=== PATIENT | male | born 1940 | race Caucasian/White ===

== ENCOUNTER 2016-12-21 09:38 | Outpatient (CLI) | payer MEDICARE | END 2016-12-21 09:39 | disposition home or self-care (01) | DX: Z00.00 Encounter for general adult medical examination without abnormal findings (principal); R06.00 Dyspnea, unspecified; D64.9 Anemia, unspecified; Z12.5 Encounter for screening for malignant neoplasm of prostate | CPT/HCPCS: 36415; 80053; 84443; 85025; G0103 ==

== ENCOUNTER 2016-12-27 09:16 | Outpatient (CLI) | payer MEDICARE | END 2016-12-27 09:17 | disposition home or self-care (01) | DX: R06.00 Dyspnea, unspecified (principal); I08.3 Combined rheumatic disorders of mitral, aortic and tricuspid valves ==

== ENCOUNTER 2017-05-14 07:08 | Outpatient (CLI) | payer MEDICARE | END 2017-05-14 07:09 | disposition home or self-care (01) | LOC: LAB.F 07:08 | PROVIDERS: ATTEND Internal Medicine Interventional Cardiology | DX: I26.99 Other pulmonary embolism without acute cor pulmonale (principal) | CPT/HCPCS: 85610 ==

== ENCOUNTER 2017-05-21 07:21 | Outpatient (CLI) | payer MEDICARE | END 2017-05-21 07:22 | disposition home or self-care (01) | LOC: LAB.F 07:21 | PROVIDERS: ATTEND Pharmacist | DX: I26.99 Other pulmonary embolism without acute cor pulmonale (principal) | CPT/HCPCS: 85610 ==

== ENCOUNTER 2017-05-24 08:00 | Outpatient (CLI) | payer MEDICARE | END 2017-05-24 08:01 | disposition home or self-care (01) | LOC: LAB.F 08:00 | PROVIDERS: ATTEND Pharmacist | DX: I26.99 Other pulmonary embolism without acute cor pulmonale (principal) | CPT/HCPCS: 85610 ==

== ENCOUNTER 2017-05-31 07:00 | Outpatient (CLI) | payer MEDICARE | END 2017-05-31 07:01 | disposition home or self-care (01) | LOC: LAB.F 07:00 | PROVIDERS: ATTEND Pharmacist | DX: I26.99 Other pulmonary embolism without acute cor pulmonale (principal) | CPT/HCPCS: 85610 ==

== ENCOUNTER 2017-06-07 07:06 | Outpatient (CLI) | payer MEDICARE | END 2017-06-07 07:07 | disposition home or self-care (01) | LOC: LAB.F 07:06 | PROVIDERS: ATTEND Pharmacist | DX: I26.99 Other pulmonary embolism without acute cor pulmonale (principal) | CPT/HCPCS: 85610 ==

== ENCOUNTER 2017-06-21 07:08 | Outpatient (CLI) | payer MEDICARE | END 2017-06-21 07:09 | disposition home or self-care (01) | LOC: LAB.F 07:08 | PROVIDERS: ATTEND Pharmacist | DX: I26.99 Other pulmonary embolism without acute cor pulmonale (principal) | CPT/HCPCS: 85610 ==

== ENCOUNTER 2017-06-28 08:51 | Outpatient (CLI) | payer MEDICARE ==
--- NOTE | 2017-06-28 13:24 | DEXA Report ---
DEXA SCAN: 06/28/2017 CLINICAL INDICATION: [facility] healthcare. TECHNIQUE: Dual energy x-ray absorptiometry (DXA) was performed on a Present[employer] system. Regions measured are the AP spine, femoral neck, and, if needed, forearm. COMPARISON: None. In accordance with the International Society for Clinical Densitometry (ISCD) guidelines, data from previous exams may be reanalyzed using current recommendations and techniques. This is done to allow a more accurate basis for comparison with the current study. FINDINGS The data for the lumbar spine is as follows: REGION BMD (g/cm/cm) T-SCORE Z-SCORE L1 0.839 -2.7 -1.9 L2 0.913 -2.7 -1.9 L3 1.044 -1.6 -0.8 L4 1.002 -2.0 -1.2 TOTAL 0.949 -2.3 -1.4 NOTE: All evaluable vertebrae are used for classification. The data for the hip is as follows: REGION BMD (g/cm/cm) T-SCORE Z-SCORE Neck 0.768 -2.3 -0.8 TOTAL 0.838 -1.8 -0.8 NOTE: The femoral neck or total proximal femur, whichever is lowest, is used for classification. IMPRESSION: THE WHO CLASSIFICATION BASED ON THE INTERNATIONAL REFERENCE STANDARD IS OSTEOPENIA. THE FRACTURE RISK IS INCREASED. RECOMMENDATION: Patients with diagnosis of osteoporosis or osteopenia should have regular bone mineral density assessment. For those eligible for Medicare, routine testing is allowed once every 2 years. Testing frequency can be increased for patients who have rapidly progressing disease or for those who are receiving medical therapy to restore bone mass. COMMENT: World Health Organization (WHO) definitions for osteoporosis and osteopenia: NORMAL BMD: T-score at -1.0 or higher, fracture risk is low. OSTEOPENIA BMD: T-score between -1.0 and -2.5, fracture risk is increased. OSTEOPOROSIS BMD: T-score at -2.5 or lower, fracture risk high. National Osteoporosis Foundation recommends: 1. Obtain adequate dietary calcium (at least 1200 mg per day) and vitamin D (400 -800 international units per day). 2. Participate, as appropriate, in regular weightbearing and muscle- strengthening exercise. 3. Avoid tobacco use and reduce alcohol and caffeine intake. 4. For more detailed information see the website at www.NOF.org. MTDD
== END 2017-06-28 08:52 | disposition home or self-care (01) ==
LOC: DI 08:51
PROVIDERS: ATTEND Family Medicine
DX: Z00.00 Encounter for general adult medical examination without abnormal findings (principal); M85.89 Other specified disorders of bone density and structure, multiple sites
CPT/HCPCS: 77080

== ENCOUNTER 2017-07-05 07:11 | Outpatient (CLI) | payer MEDICARE | END 2017-07-05 07:12 | disposition home or self-care (01) | LOC: LAB.F 07:11 | PROVIDERS: ATTEND Pharmacist | DX: I26.99 Other pulmonary embolism without acute cor pulmonale (principal) | CPT/HCPCS: 85610 ==

== ENCOUNTER 2017-08-23 07:26 | Outpatient (CLI) | payer MEDICARE | END 2017-08-23 07:27 | disposition home or self-care (01) | LOC: LAB.F 07:26 | PROVIDERS: ATTEND Pharmacist | DX: I26.99 Other pulmonary embolism without acute cor pulmonale (principal) | CPT/HCPCS: 85610 ==

== ENCOUNTER 2017-09-11 07:18 | Outpatient (CLI) | payer MEDICARE | END 2017-09-11 07:19 | disposition home or self-care (01) | LOC: LAB.F 07:18 | PROVIDERS: ATTEND Pharmacist | DX: I26.99 Other pulmonary embolism without acute cor pulmonale (principal) | CPT/HCPCS: 85610 ==

== ENCOUNTER 2017-09-25 07:58 | Outpatient (CLI) | payer MEDICARE | END 2017-09-25 07:59 | disposition home or self-care (01) | LOC: LAB.F 07:58 | PROVIDERS: ATTEND Pharmacist | DX: I26.99 Other pulmonary embolism without acute cor pulmonale (principal) | CPT/HCPCS: 85610 ==

== ENCOUNTER 2017-10-23 07:43 | Outpatient (CLI) | payer MEDICARE | END 2017-10-23 07:44 | disposition home or self-care (01) | LOC: LAB.F 07:43 | PROVIDERS: ATTEND Pharmacist | DX: I26.99 Other pulmonary embolism without acute cor pulmonale (principal) | CPT/HCPCS: 85610 ==

== ENCOUNTER 2017-11-19 07:42 | Outpatient (CLI) | payer MEDICARE | END 2017-11-19 07:43 | disposition home or self-care (01) | LOC: LAB 07:42 | PROVIDERS: ATTEND Pharmacist | DX: I26.99 Other pulmonary embolism without acute cor pulmonale (principal) | CPT/HCPCS: 85610 ==

== ENCOUNTER 2017-12-10 07:34 | Outpatient (CLI) | payer MEDICARE | END 2017-12-10 07:35 | disposition home or self-care (01) | LOC: LAB.F 07:34 | PROVIDERS: ATTEND Pharmacist | DX: I26.99 Other pulmonary embolism without acute cor pulmonale (principal) | CPT/HCPCS: 85610 ==

== ENCOUNTER 2018-01-02 07:44 | Outpatient (CLI) | payer MEDICARE | END 2018-01-02 07:45 | disposition home or self-care (01) | LOC: LAB.F 07:44 | PROVIDERS: ATTEND Pharmacist | DX: I26.99 Other pulmonary embolism without acute cor pulmonale (principal) | CPT/HCPCS: 85610 ==

== ENCOUNTER 2018-01-23 07:09 | Outpatient (CLI) | payer MEDICARE | END 2018-01-23 07:10 | disposition home or self-care (01) | LOC: LAB.F 07:09 | PROVIDERS: ATTEND Pharmacist | DX: I26.99 Other pulmonary embolism without acute cor pulmonale (principal) | CPT/HCPCS: 85610 ==

== ENCOUNTER 2018-02-08 10:15 | Emergency (ER) | payer MEDICARE ==
--- NOTE | 2018-02-08 10:38 | ED Physician Documentation ---
History of Present Illness - Stated complaint Stated Complaint: RIB PX SURGERY SITE - Chief complaint Chief Complaint: General - History obtained from History obtained from: Patient - History of Present Illness Timing: Today Pain level max: 3 Pain level now: 3 - Additonal information Additional information: Patient is a 77-year-old male who states that he noticed what feels like old temporary pacemaker wires protruding into the subcutaneous tissue of his right chest wall today and that they are painful. States he had pacemaker placed last year it [facility] in [place], Dr. Watts. No redness, no swelling. No drainage. No fevers. Better with rest, worse with movement and palpation Review of Systems Constitutional: denies: Fever, Chills Skin: denies: Rash Musculoskeletal: denies: Neck pain, Back pain Neurologic: denies: Headache PD PAST MEDICAL HISTORY - Past Medical History Cardiovascular: None, Arrhythmia Respiratory: None Endocrine/Autoimmune: Other GI: None : None HEENT: None Psych: None Musculoskeletal: None Derm: None - Past Surgical History General: Colonoscopy Ortho: Arthroscopic surgery - Present Medications Home Medications: Ambulatory Orders Medication Instructions Recorded Confirmed Aspirin 81 mg PO DAILY 02/08/18 Metoprolol Tartrate 25 mg PO BID 02/08/18 Warfarin Sodium 6 mg PO DAILY 02/08/18 - Allergies Allergies/Adverse Reactions: Allergies Allergy/AdvReac Type Severity Reaction Status Date / Time bee venom protein (honey bee) Allergy Edema Verified 02/08/18 11:04 perfume AdvReac Headache Verified 02/08/18 11:04 PD ED PE NORMAL - Vitals Vital signs reviewed: Yes - General General: Alert and oriented X 3, No acute distress - HEENT HEENT: Moist mucous membranes - Neck Neck: Supple, no meningeal sign - Cardiac Cardiac: RRR - Respiratory Respiratory: No respiratory distress, Clear bilaterally - Abdomen Abdomen: Soft, Non tender, Non distended - Derm Derm: Warm and dry, Other (Small area, 0.5 x 0.5 cm firmness to the subcutaneous tissue, no signs of infection.) - Neuro Neuro: Alert and oriented X 3 - Psych Psych: Normal mood, Normal affect Results - Vitals Vitals: Vital Signs - 24 hr 02/08/18 02/08/18 10:22 11:20 Temperature 36.5 C Heart Rate 74 76 Respiratory 18 15 Rate Blood Pressure 125/81 H 155/70 H O2 Saturation 100 98 Oxygen O2 Source Room air - Rads (name of study) cxr Radiology: Prelim report reviewed, EMP read contemporaneously, See rad report ( No focal consolidation. Therefore percutaneous temporary pacing wires extending from the anterior chest posteriorly to the left and right side of the heart. 2 of these wires protrude anteriorly at the anterior chest and are best appreciated on the lateral view) PD MEDICAL DECISION MAKING - ED course Complexity details: reviewed results, re-evaluated patient, considered differential, d/w patient, d/w customer support consultant ED course: Patient appears to have 2 temporary pacing wires that are protruding anteriorly into the anterior chest. No evidence of infection. Discussed the case with Dr. Saunders, cardiothoracic surgery on-call in [place] who recommends follow- up in the office on Saturday for evaluation. X-rays were placed on a CD and given to the patient. Patient counseled regarding signs and symptoms for which I believe and urgent re-evaluation would be necessary. Patient with good understanding of and agreement to plan and is comfortable going home at this time This document was made in part using voice recognition software. While efforts are made to proofread this document, sound alike and grammatical errors may occur. Departure - Departure Disposition: Home, Self Care Clinical Impression: Foreign body in subcutaneous tissue Condition: Good Instructions: ED Foreign Body Soft Tissue Follow-Up: Moerno Watts JR, MD [Physician No Access] - 02/10/18 Comments: I spoke with Dr. Saunders today and she or Dr. Watts will see you in clinic on saturday about the wires. Take the xrays with you. Discharge Date/Time: 02/08/18 11:20
--- NOTE | 2018-02-08 11:10 | XRAY Preliminary Report ---
Exam: XR CHEST 2 VIEW X-RAY IMPRESSION: 1. No focal consolidation. 2. There are 4 percutaneous temporary pacing wires extending from the anterior chest posteriorly to t he left and right side of the heart. Two of these wires protrude anteriorly at the anterior chest and are best appreciated on the lateral view. [facility] SITE ID: [id number]
--- NOTE | 2018-02-08 11:10 | XRAY Report ---
EXAM: CHEST RADIOGRAPHY EXAM DATE: 02/08/2018 10:41 AM. CLINICAL HISTORY: R lower anterior chest wall pain, swelling, ST FB?. COMPARISON: None. TECHNIQUE: 2 views. FINDINGS: Lungs/Pleura: No focal opacities evident. No pleural effusion. No pneumothorax. Normal volumes. Mediastinum: Heart and mediastinal contours are unremarkable. Other: Left-sided cardiac pacemaker device with [address] There are 4 percutaneous th in wires extending posteriorly from the anterior chest to the left and right side of the heart. Moderate anterior wedging of the T11 T6 vertebral bodies and mild anterior wedging of the T8 vertebra l body. IMPRESSION: 1. No focal consolidation. 2. There are 4 percutaneous temporary pacing wires extending from the anterior chest posteriorly to t he left and right side of the heart. Two of these wires protrude anteriorly at the anterior chest and are best appreciated on the lateral view. [facility] Referring Provider Line: [phone] SITE ID: [id number]
[2018-02-08 11:21] VITALS: BP 155/70
== END 2018-02-08 11:20 | disposition home or self-care (01) ==
LOC: ED 10:15
DX: S20.359A Superficial foreign body of unspecified front wall of thorax, initial encounter (principal); X58.XXXA Exposure to other specified factors, initial encounter; Z95.0 Presence of cardiac pacemaker; Z79.01 Long term (current) use of anticoagulants; Z79.82 Long term (current) use of aspirin
CPT/HCPCS: 71046; 99283

== ENCOUNTER 2018-02-20 07:33 | Outpatient (CLI) | payer MEDICARE | END 2018-02-20 07:34 | disposition home or self-care (01) | LOC: LAB.F 07:33 | PROVIDERS: ATTEND Pharmacist | DX: I26.99 Other pulmonary embolism without acute cor pulmonale (principal) | CPT/HCPCS: 85610 ==

== ENCOUNTER 2018-03-06 07:19 | Outpatient (CLI) | payer MEDICARE | END 2018-03-06 07:20 | disposition home or self-care (01) | LOC: LAB.F 07:19 | PROVIDERS: ATTEND Pharmacist | DX: I26.99 Other pulmonary embolism without acute cor pulmonale (principal) | CPT/HCPCS: 85610 ==

== ENCOUNTER 2018-03-20 13:40 | Outpatient (CLI) | payer MEDICARE | END 2018-03-20 13:41 | disposition home or self-care (01) | LOC: LAB.F 13:40 | PROVIDERS: ATTEND Pharmacist | DX: I26.99 Other pulmonary embolism without acute cor pulmonale (principal) | CPT/HCPCS: 85610 ==

== ENCOUNTER 2018-04-11 07:18 | Outpatient (CLI) | payer MEDICARE | END 2018-04-11 07:19 | disposition home or self-care (01) | LOC: LAB.F 07:18 | PROVIDERS: ATTEND Pharmacist | DX: I26.99 Other pulmonary embolism without acute cor pulmonale (principal) | CPT/HCPCS: 85610 ==

== ENCOUNTER 2018-05-09 07:21 | Outpatient (CLI) | payer MEDICARE | END 2018-05-09 07:22 | disposition home or self-care (01) | LOC: LAB.F 07:21 | PROVIDERS: ATTEND Family Medicine | DX: I26.99 Other pulmonary embolism without acute cor pulmonale (principal) | CPT/HCPCS: 85610 ==

== ENCOUNTER 2018-05-29 07:26 | Outpatient (CLI) | payer MEDICARE | END 2018-05-29 07:27 | disposition home or self-care (01) | LOC: LAB.F 07:26 | PROVIDERS: ATTEND Pharmacist | DX: I26.99 Other pulmonary embolism without acute cor pulmonale (principal) | CPT/HCPCS: 85610 ==

== ENCOUNTER 2018-07-29 14:17 | Outpatient (CLI) | payer MEDICARE | END 2018-07-29 14:18 | disposition home or self-care (01) | LOC: LAB.F 14:17 | PROVIDERS: ATTEND Pharmacist | DX: I26.99 Other pulmonary embolism without acute cor pulmonale (principal) | CPT/HCPCS: 85610 ==

== ENCOUNTER 2018-08-05 15:18 | Outpatient (CLI) | payer MEDICARE ==
--- NOTE | 2018-08-05 22:04 | XRAY Report ---
Reason: RIB PAIN,RT SIDED Procedure Date: 08/05/2018 Accession Number: [id number] / [id number] Procedure: XR - Chest 2 View X-Ray CPT Code: 60787 FULL RESULT: EXAM: CHEST RADIOGRAPHY EXAM DATE: 08/05/2018 03:32 PM. CLINICAL HISTORY: RIB PAIN,RT SIDED. COMPARISON: CHEST 2 VIEW 02/08/2018 10:31 AM. TECHNIQUE: 2 views. FINDINGS: Lungs/Pleura: No focal opacities evident. No pleural effusion. No pneumothorax. Normal volumes. Mediastinum: Heart and mediastinal contours are unremarkable. Aortic valve prosthesis, as before. Pacemaker electrodes at the right atrial appendage and right ventricular apex, as before. Other: Rib detail radiographs were not obtained, but right-sided ribs are grossly unremarkable. Moderate compression deformities are noted at 3 mid to lower thoracic vertebrae, as before. IMPRESSION: 1. Rib detail radiographs are not obtained, but right-sided ribs are grossly unremarkable. 2. 3 moderate mid to lower thoracic vertebral compression deformities, as before. 3. Lungs are clear. 4. Heart size normal. Prosthetic aortic valve and dual chamber pacemaker electrodes, as before. [facility]
== END 2018-08-05 15:19 | disposition home or self-care (01) ==
LOC: DI 15:18
PROVIDERS: ATTEND Nurse Practitioner
DX: M43.8X4 Other specified deforming dorsopathies, thoracic region (principal); Z95.0 Presence of cardiac pacemaker; Z95.2 Presence of prosthetic heart valve
CPT/HCPCS: 71046

== ENCOUNTER 2018-08-28 07:09 | Outpatient (CLI) | payer MEDICARE | END 2018-08-28 07:10 | disposition home or self-care (01) | LOC: LAB.F 07:09 | PROVIDERS: ATTEND Pharmacist | DX: I26.99 Other pulmonary embolism without acute cor pulmonale (principal) | CPT/HCPCS: 85610 ==

== ENCOUNTER 2018-09-11 07:30 | Outpatient (CLI) | payer MEDICARE | END 2018-09-11 07:31 | disposition home or self-care (01) | LOC: LAB.F 07:30 | PROVIDERS: ATTEND Pharmacist | DX: I26.99 Other pulmonary embolism without acute cor pulmonale (principal) | CPT/HCPCS: 85610 ==

== ENCOUNTER 2018-09-25 08:02 | Outpatient (CLI) | payer MEDICARE | END 2018-09-25 08:03 | disposition home or self-care (01) | LOC: LAB.F 08:02 | PROVIDERS: ATTEND Pharmacist | DX: I26.99 Other pulmonary embolism without acute cor pulmonale (principal) | CPT/HCPCS: 85610 ==

== ENCOUNTER 2018-10-09 07:17 | Outpatient (CLI) | payer MEDICARE | END 2018-10-09 07:18 | disposition home or self-care (01) | LOC: LAB.F 07:17 | PROVIDERS: ATTEND Pharmacist | DX: I26.99 Other pulmonary embolism without acute cor pulmonale (principal) | CPT/HCPCS: 85610 ==

== ENCOUNTER 2018-10-29 09:31 | Outpatient (CLI) | payer MEDICARE | END 2018-10-29 09:32 | disposition home or self-care (01) | LOC: LAB.F 09:31 | PROVIDERS: ATTEND Pharmacist | DX: I26.99 Other pulmonary embolism without acute cor pulmonale (principal) | CPT/HCPCS: 85610 ==

== ENCOUNTER 2018-11-20 07:10 | Outpatient (CLI) | payer MEDICARE | END 2018-11-20 07:11 | disposition home or self-care (01) | LOC: LAB.F 07:10 | PROVIDERS: ATTEND Pharmacist | DX: I26.99 Other pulmonary embolism without acute cor pulmonale (principal) | CPT/HCPCS: 85610 ==

== ENCOUNTER 2018-12-04 07:20 | Outpatient (CLI) | payer MEDICARE | END 2018-12-04 07:21 | disposition home or self-care (01) | LOC: LAB.F 07:20 | PROVIDERS: ATTEND Pharmacist | DX: I26.99 Other pulmonary embolism without acute cor pulmonale (principal) | CPT/HCPCS: 85610 ==

== ENCOUNTER 2018-12-25 07:14 | Outpatient (CLI) | payer MEDICARE | END 2018-12-25 07:15 | disposition home or self-care (01) | LOC: LAB.F 07:14 | PROVIDERS: ATTEND Pharmacist | DX: I26.99 Other pulmonary embolism without acute cor pulmonale (principal) | CPT/HCPCS: 85610 ==

== ENCOUNTER 2019-01-08 07:14 | Outpatient (CLI) | payer MEDICARE | END 2019-01-08 07:15 | disposition home or self-care (01) | LOC: LAB.F 07:14 | PROVIDERS: ATTEND Pharmacist | DX: I26.99 Other pulmonary embolism without acute cor pulmonale (principal) | CPT/HCPCS: 85610 ==

== ENCOUNTER 2019-01-22 07:08 | Outpatient (CLI) | payer MEDICARE | END 2019-01-22 07:09 | disposition home or self-care (01) | LOC: LAB.F 07:08 | PROVIDERS: ATTEND Pharmacist | DX: I26.99 Other pulmonary embolism without acute cor pulmonale (principal) | CPT/HCPCS: 85610 ==

== ENCOUNTER 2019-03-05 07:16 | Outpatient (CLI) | payer MEDICARE | END 2019-03-05 07:17 | disposition home or self-care (01) | LOC: LAB.F 07:16 | PROVIDERS: ATTEND Pharmacist | DX: I26.99 Other pulmonary embolism without acute cor pulmonale (principal) | CPT/HCPCS: 85610 ==

== ENCOUNTER 2019-03-19 07:30 | Outpatient (CLI) | payer MEDICARE | END 2019-03-19 07:31 | disposition home or self-care (01) | LOC: LAB.F 07:30 | PROVIDERS: ATTEND Pharmacist | DX: I26.99 Other pulmonary embolism without acute cor pulmonale (principal) | CPT/HCPCS: 85610 ==

== ENCOUNTER 2019-04-02 13:08 | Emergency (ER) | payer MEDICARE ==
[2019-04-02] MEDS ORDERED: HYDROmorphone 1 MG/ML CARPUJECT IVP STA (16:12)
--- NOTE | 2019-04-02 16:22 | ED Physician Documentation ---
History of Present Illness - Stated complaint Stated Complaint: NECK PX/BUMP - Chief complaint Chief Complaint: General - History obtained from History obtained from: Patient, Family - History of Present Illness Timing: Other (today) Pain level max: 10 Pain level now: 10 Improved by: rest Worsened by: movement - Additonal information Additional information: 78-year-old male presents to the emergency department with neck pain. Started this morning and is worsened throughout the day. Now unable to turn his neck. He states that he felt a small lump at the base of his neck earlier today. No trauma. No fevers. No chest pain. No back pain. No focal neurological deficits. No numbness or tingling. Worse with movement and better with rest. Review of Systems Constitutional: denies: Fever, Chills Respiratory: denies: Cough GI: denies: Nausea, Vomiting, Diarrhea Skin: denies: Rash Musculoskeletal: denies: Back pain Neurologic: denies: Focal weakness, Numbness, Headache PD PAST MEDICAL HISTORY - Past Medical History Past Medical History: Yes Cardiovascular: Arrhythmia Respiratory: None Neuro: None Endocrine/Autoimmune: Other GI: None : None HEENT: None Psych: None Musculoskeletal: None Derm: None - Past Surgical History Past Surgical History: Yes General: Colonoscopy Ortho: Arthroscopic surgery Cardiovascular: Valve replacement, Pacemaker - Present Medications Home Medications: Ambulatory Orders Medication Instructions Recorded Confirmed Aspirin 81 mg PO DAILY 02/08/18 Metoprolol Tartrate 25 mg PO BID 02/08/18 Warfarin Sodium 6 mg PO DAILY 02/08/18 Hydrocodone/Acetaminophen 1 - 2 each PO Q6H PRN #14 tablet 04/02/19 [Hydrocodon-Acetaminophen 5-325] diazePAM [Valium] 5 - 10 mg PO TID PRN #15 tablet 04/02/19 - Allergies Allergies/Adverse Reactions: Allergies Allergy/AdvReac Type Severity Reaction Status Date / Time bee venom protein (honey bee) Allergy Edema Verified 04/02/19 13:13 perfume AdvReac Headache Verified 04/02/19 13:13 - Social History Does the pt smoke?: No Smoking Status: Never smoker Does the pt drink ETOH?: No Does the pt have substance abuse?: No - Immunizations Immunizations are current?: Yes - POLST Patient has POLST: No PD ED PE NORMAL - Vitals Vital signs reviewed: Yes - General General: Alert and oriented X 3, No acute distress - HEENT HEENT: Moist mucous membranes - Neck Neck: Supple, no meningeal sign, Other (Paraspinal spasm bilateral paracervical. No midline tenderness to palpation. No step-off or deformity) - Cardiac Cardiac: RRR - Respiratory Respiratory: No respiratory distress, Clear bilaterally - Abdomen Abdomen: Soft, Non tender, Non distended - Back Back: No spinal TTP - Derm Derm: Warm and dry - Neuro Neuro: Alert and oriented X 3 - Psych Psych: Normal mood, Normal affect Results - Vitals Vitals: Vital Signs - 24 hr 04/02/19 04/02/19 04/02/19 13:11 16:43 17:18 Temperature 36.4 C L Heart Rate 70 70 70 Respiratory 19 12 13 Rate Blood Pressure 130/78 150/92 H 127/87 H O2 Saturation 94 97 95 04/02/19 18:17 Temperature 36.3 C L Heart Rate 70 Respiratory 13 Rate Blood Pressure 130/88 H O2 Saturation 96 Oxygen O2 Source Room air - Labs Labs: Laboratory Tests 04/02/19 04/02/19 04/02/19 16:27 16:27 16:27 WBC 6.4 RBC 4.28 L Hgb 12.5 L Hct 39.5 L MCV 92.3 MCH 29.2 MCHC 31.6 L RDW 13.1 Plt Count 147 MPV 9.7 Neut # (Auto) 4.4 Lymph # (Auto) 1.3 L [place] # (Auto) 0.6 Eos # (Auto) 0.1 Baso # (Auto) 0.0 Absolute Nucleated RBC 0.00 Nucleated RBC % 0.0 PT 36.0 H INR 3.2 H Sodium 139 Potassium 4.4 Chloride 104 Carbon Dioxide 25 Anion Gap 10.0 BUN 22 H Creatinine 0.6 Estimated GFR (MDRD) 131 Glucose 96 Calcium 8.9 Total Bilirubin 1.3 H AST 46 H ALT 58 Alkaline Phosphatase 104 Total Protein 7.1 Albumin 3.7 Globulin 3.4 Albumin/Globulin Ratio 1.1 Lipase 31 - Rads (name of study) head angio CT Radiology: Prelim report reviewed, EMP read contemporaneously, See rad report (No evidence of acute intracranial abnormality on the noncontrast CT head. Specifically, no evidence of acute infarct, intracranial hemorrhage, mass effect, midline shift, or hydrocephalus. 2. 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 3. No abnormal enhancement on the postcontrast CT head. 4. No CTA evidence of hemodynamically significant stenosis, large vessel occlusion, acute dissection, aneurysm, or vascular malformation within extracranial or intracranial arteries. ) neck angio ct Radiology: Prelim report reviewed, EMP read contemporaneously, See rad report (No evidence of acute intracranial abnormality on the noncontrast CT head. Specifically, no evidence of acute infarct, intracranial hemorrhage, mass effect, midline shift, or hydrocephalus. 2. 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 3. No abnormal enhancement on the postcontrast CT head. 4. No CTA evidence of hemodynamically significant stenosis, large vessel occlusion, acute dissection, aneurysm, or vascular malformation within extracranial or intracranial arteries. ) PD MEDICAL DECISION MAKING - ED course Complexity details: reviewed results, re-evaluated patient, considered differential, d/w patient, d/w family ED course: 78-year-old male with neck muscle spasm. Initially concern for possible verteberal artery dissection or aneurysm. He also stated that he developed worsening headache and had difficulty speaking secondary to pain. Concern for possible aneurysm as well. He improved with Dilaudid, Toradol and Valium. Clinically appeared to be a muscle spasm. No acute findings on angiograms. We will have him follow-up closely with his doctor. Patient and family counseled regarding signs and symptoms for which I believe and urgent re-evaluation would be necessary. Patient with good understanding of and agreement to plan and is comfortable going home at this time This document was made in part using voice recognition software. While efforts are made to proofread this document, sound alike and grammatical errors may occur. Departure - Departure Disposition: 01 Home, Self Care Clinical Impression: Neck muscle spasm Condition: Good Instructions: ED Spasm Neck No Injury Follow-Up: your,doctor in 3 days [Other] Prescriptions: diazePAM [Valium] 5 - 10 mg PO TID PRN #15 tablet PRN Reason: Spasms Hydrocodone/Acetaminophen [Hydrocodon-Acetaminophen 5-325] 1 - 2 each PO Q6H PRN #14 tablet PRN Reason: pain Comments: Gently move your neck at home. Return if you worsen. A heating pad may help as well. Do not drive or operate heavy machinery while taking the Valium or Vicodin. Do not drink alcohol or drive while on narcotic pain medicine. Note that many narcotic pain relievers also contain tylenol/acetaminophen. Please ensure that your total dose of acetaminophen from all sources does not exceed 3 grams (3000mg) per day. You may constipated on this medication, take a stool softener such as "Colace" twice a day while you are on it. Also recommend a gucd-mpe-ablhhjj laxative such as senna or MiraLAX any day that you do not have a bowel movement. If you received narcotic pain medication in the emergency department, do not drive or operate machinery for the next 24 hours. Discharge Date/Time: 04/02/19 19:14
[2019-04-02 16:35] LABS: BASOPHILS % (AUTO) 0.3 %; EOSINOPHILS # (AUTO) 0.1 10^3/uL (0.0-0.7); EOSINOPHILS % (AUTO) 1.2 %; HGB - HEMOGLOBIN 12.5 g/dL (14.0-18.0); LYMPHOCYTES # (AUTO) 1.3 10^3/uL (1.5-3.5); LYMPHOCYTES % (AUTO) 20.4 %; MEAN CORPUSCULAR HEMOGLOBIN 29.2 pg (27.0-31.0); MEAN CORPUSCULAR HGB CONC 31.6 g/dL (32.0-36.0); MEAN CORPUSCULAR VOLUME 92.3 fL (80.0-94.0); MEAN PLATELET VOLUME 9.7 fL (7.4-11.4); MONOCYTES # (AUTO) 0.6 10^3/uL (0.0-1.0); MONOCYTES % (AUTO) 9.7 %; NEUTROPHILS # (AUTO) 4.4 10^3/uL (1.5-6.6); NEUTROPHILS % (AUTO) 68.2 %; PLT - PLATELET COUNT 147 10^3/uL (130-450); RED BLOOD COUNT 4.28 10^6/uL (4.70-6.10); RED CELL DISTRIBUTION WIDTH 13.1 % (12.0-15.0); WHITE BLOOD COUNT 6.4 x10^3/uL (4.8-10.8)
[2019-04-02 16:46] LABS: ALBUMIN 3.7 g/dL (3.2-5.5); ALBUMIN/GLOBULIN RATIO 1.1 (1.0-2.2); BILIRUBIN,TOTAL 1.3 mg/dL (0.2-1.0); CALCIUM 8.9 mg/dL (8.5-10.3); CREATININE 0.6 mg/dL (0.6-1.2); TOTAL PROTEIN 7.1 g/dL (6.7-8.2)
[2019-04-02] MEDS ORDERED: IOVERSOL 320 100 ML VIAL IVP ONE ×2 (16:50→17:21)
[2019-04-02 17:13] LABS: INR 3.2 (0.8-1.2)
--- NOTE | 2019-04-02 17:48 | CT Report ---
Reason: neck pain, headache Procedure Date: 04/02/2019 Accession Number: [id number] / [id number] Procedure: CT - ANGIO HEAD W/WO CPT Code: FULL RESULT: EXAM: CT ANGIOGRAM HEAD AND NECK. CT SCAN HEAD WITHOUT AND WITH CONTRAST. EXAM DATE: 04/02/2019 05:18 PM. CLINICAL HISTORY: 78-year-old male. Neck pain, headache. COMPARISON: NECK ANGIO 04/02/2019 5:01 PM. TECHNIQUE: Routine axial helical CTA imaging was performed from the aortic arch through the [place]. Routine axial CT imaging of the head was performed prior to and following contrast administration. Reconstructions: Routine multiplanar 3D MIP reconstructions. IV contrast: 80 cc Optiray 320. NASCET Criteria are used for stenosis measurements. In accordance with CT protocol optimization, one or more of the following dose reduction techniques were utilized for this exam: automated exposure control, adjustment of mA and/or KV based on patient size, or use of iterative reconstructive technique. FINDINGS: CT SCAN HEAD: Parenchyma: No intraparenchymal hemorrhage. No evidence of mass, midline shift, or CT findings of acute infarction. [place]-white differentiation is distinct. 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 No abnormal enhancement on the postcontrast CT head. Extra-axial Spaces: Normal for age. No subdural or epidural collections identified. Ventricles: Normal in size and position. Sinuses and Orbits: Imaged paranasal sinuses, orbits, and mastoids show no significant abnormality. Bones: No evidence of fracture or calvarial defect. CT ANGIOGRAM EXTRACRANIAL CIRCULATION: The visualized arch is unremarkable. Great vessels are patent and unremarkable. Right Carotid: The common carotid, internal carotid, and external carotid arteries are widely patent. No dissection, significant atherosclerotic plaque, or calcification identified. Left Carotid: The common carotid, internal carotid, and external carotid arteries are widely patent. No dissection, significant atherosclerotic plaque, or calcification identified. Vertebrals: The right vertebral artery is dominant. The vertebrobasilar system shows no stenosis, dissection, aneurysm, or significant atherosclerotic disease. CT ANGIOGRAM INTRACRANIAL CIRCULATION: RIGHT: Internal Carotid artery: No evidence of dissection. No evidence of aneurysm along the intracranial ICA. Anterior Cerebral Artery: Patent without significant stenosis, aneurysm, or vascular malformation. Middle Cerebral Artery: Patent without significant stenosis, aneurysm, or vascular malformation. Posterior Cerebral Artery: Patent without significant stenosis, aneurysm, or vascular malformation. Posterior Communicating Artery: Patent without significant stenosis, aneurysm, or vascular malformation. LEFT: Internal Carotid artery: No evidence of dissection. No evidence of aneurysm along the intracranial ICA. Anterior Cerebral Artery: Patent without significant stenosis, aneurysm, or vascular malformation. Middle Cerebral Artery: Patent without significant stenosis, aneurysm, or vascular malformation. Posterior Cerebral Artery: Patent without significant stenosis, aneurysm, or vascular malformation. Posterior Communicating Artery: Not visualized, aplastic versus markedly hypoplastic CENTRAL: Anterior Communicating Artery: Patent. No aneurysm. The dural venous sinuses are patent. Other: The visualized lung apices are clear. The bones are diffusely osteopenic. Mild to moderate multilevel degenerative spondylosis, no acute fracture or malalignment. The visualized soft tissues of the neck demonstrate no acute abnormality. IMPRESSION: 1. No evidence of acute intracranial abnormality on the noncontrast CT head. Specifically, no evidence of acute infarct, intracranial hemorrhage, mass effect, midline shift, or hydrocephalus. 2. 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 3. No abnormal enhancement on the postcontrast CT head. 4. No CTA evidence of hemodynamically significant stenosis, large vessel occlusion, acute dissection, aneurysm, or vascular malformation within extracranial or intracranial arteries. [facility]
--- NOTE | 2019-04-02 17:48 | CT Report ---
Reason: neck pain, headache Procedure Date: 04/02/2019 Accession Number: [id number] / [id number] Procedure: CT - ANGIO NECK W CPT Code: FULL RESULT: EXAM: CT ANGIOGRAM HEAD AND NECK. CT SCAN HEAD WITHOUT AND WITH CONTRAST. EXAM DATE: 04/02/2019 05:18 PM. CLINICAL HISTORY: 78-year-old male. Neck pain, headache. COMPARISON: NECK ANGIO 04/02/2019 5:01 PM. TECHNIQUE: Routine axial helical CTA imaging was performed from the aortic arch through the [place] of [place]. Routine axial CT imaging of the head was performed prior to and following contrast administration. Reconstructions: Routine multiplanar 3D MIP reconstructions. IV contrast: 80 cc Optiray 320. NASCET Criteria are used for stenosis measurements. In accordance with CT protocol optimization, one or more of the following dose reduction techniques were utilized for this exam: automated exposure control, adjustment of mA and/or KV based on patient size, or use of iterative reconstructive technique. FINDINGS: CT SCAN HEAD: Parenchyma: No intraparenchymal hemorrhage. No evidence of mass, midline shift, or CT findings of acute infarction. [place]-white differentiation is distinct. 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 No abnormal enhancement on the postcontrast CT head. Extra-axial Spaces: Normal for age. No subdural or epidural collections identified. Ventricles: Normal in size and position. Sinuses and Orbits: Imaged paranasal sinuses, orbits, and mastoids show no significant abnormality. Bones: No evidence of fracture or calvarial defect. CT ANGIOGRAM EXTRACRANIAL CIRCULATION: The visualized arch is unremarkable. Great vessels are patent and unremarkable. Right Carotid: The common carotid, internal carotid, and external carotid arteries are widely patent. No dissection, significant atherosclerotic plaque, or calcification identified. Left Carotid: The common carotid, internal carotid, and external carotid arteries are widely patent. No dissection, significant atherosclerotic plaque, or calcification identified. Vertebrals: The right vertebral artery is dominant. The vertebrobasilar system shows no stenosis, dissection, aneurysm, or significant atherosclerotic disease. CT ANGIOGRAM INTRACRANIAL CIRCULATION: RIGHT: Internal Carotid artery: No evidence of dissection. No evidence of aneurysm along the intracranial ICA. Anterior Cerebral Artery: Patent without significant stenosis, aneurysm, or vascular malformation. Middle Cerebral Artery: Patent without significant stenosis, aneurysm, or vascular malformation. Posterior Cerebral Artery: Patent without significant stenosis, aneurysm, or vascular malformation. Posterior Communicating Artery: Patent without significant stenosis, aneurysm, or vascular malformation. LEFT: Internal Carotid artery: No evidence of dissection. No evidence of aneurysm along the intracranial ICA. Anterior Cerebral Artery: Patent without significant stenosis, aneurysm, or vascular malformation. Middle Cerebral Artery: Patent without significant stenosis, aneurysm, or vascular malformation. Posterior Cerebral Artery: Patent without significant stenosis, aneurysm, or vascular malformation. Posterior Communicating Artery: Not visualized, aplastic versus markedly hypoplastic CENTRAL: Anterior Communicating Artery: Patent. No aneurysm. The dural venous sinuses are patent. Other: The visualized lung apices are clear. The bones are diffusely osteopenic. Mild to moderate multilevel degenerative spondylosis, no acute fracture or malalignment. The visualized soft tissues of the neck demonstrate no acute abnormality. IMPRESSION: 1. No evidence of acute intracranial abnormality on the noncontrast CT head. Specifically, no evidence of acute infarct, intracranial hemorrhage, mass effect, midline shift, or hydrocephalus. 2. 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 3. No abnormal enhancement on the postcontrast CT head. 4. No CTA evidence of hemodynamically significant stenosis, large vessel occlusion, acute dissection, aneurysm, or vascular malformation within extracranial or intracranial arteries. RADIA
[2019-04-02] MEDS ORDERED: diazePAM INJ 5 MG/ML SYRINGE IVP STA (18:01)
[2019-04-02 18:18] VITALS: BP 130/88
== END 2019-04-02 19:14 | disposition home or self-care (01) ==
LOC: ED 13:08
DX: M62.838 Other muscle spasm (principal); Z79.01 Long term (current) use of anticoagulants; Z95.0 Presence of cardiac pacemaker; Z95.2 Presence of prosthetic heart valve
CPT/HCPCS: 36415; 70496; 70498; 80053; 83690; 85025; 85610; 96374; 96375; 99284; J1170; Q9967

== ENCOUNTER 2019-04-23 07:19 | Outpatient (CLI) | payer MEDICARE | END 2019-04-23 07:20 | disposition home or self-care (01) | LOC: LAB.S 07:19 | PROVIDERS: ATTEND Pharmacist | DX: I26.99 Other pulmonary embolism without acute cor pulmonale (principal) | CPT/HCPCS: 85610 ==

== ENCOUNTER 2019-05-14 07:11 | Outpatient (CLI) | payer MEDICARE ==
[2019-05-14 11:16] LABS: HGB - HEMOGLOBIN 12.4 g/dL (14.0-18.0); MEAN CORPUSCULAR HGB CONC 31.3 g/dL (32.0-36.0); MEAN CORPUSCULAR VOLUME 92.7 fL (80.0-94.0); MEAN PLATELET VOLUME 10.4 fL (7.4-11.4); RED BLOOD COUNT 4.27 10^6/uL (4.70-6.10); RED CELL DISTRIBUTION WIDTH 13.6 % (12.0-15.0); WHITE BLOOD COUNT 6.1 x10^3/uL (4.8-10.8)
[2019-05-14 11:42] LABS: CRP - C-REACTIVE PROTEIN 6.3 mg/dL (0-1.0); MAGNESIUM 2.1 mg/dL (1.7-2.8); URIC ACID 5.6 mg/dL (2.6-7.2)
[2019-05-14 12:21] LABS: RHEUMATOID FACTOR NEGATIVE (Negative)
[2019-05-18 13:06] LABS: ANA SCREEN NEGATIVE (NEGATIVE)
== END 2019-05-14 07:12 | disposition home or self-care (01) ==
LOC: LAB.S 07:11
PROVIDERS: ATTEND Pharmacist
DX: I26.99 Other pulmonary embolism without acute cor pulmonale (principal); M13.0 Polyarthritis, unspecified
CPT/HCPCS: 36415; 83735; 84550; 85027; 85610; 85651; 86038; 86140; 86200; 86430

== ENCOUNTER 2019-05-28 07:14 | Outpatient (CLI) | payer MEDICARE | END 2019-05-28 07:15 | disposition home or self-care (01) | LOC: LAB.S 07:14 | PROVIDERS: ATTEND Pharmacist | DX: I26.99 Other pulmonary embolism without acute cor pulmonale (principal) | CPT/HCPCS: 85610 ==

== ENCOUNTER 2019-06-18 07:19 | Outpatient (CLI) | payer MEDICARE | END 2019-06-18 07:20 | disposition home or self-care (01) | LOC: LAB.S 07:19 | PROVIDERS: ATTEND Pharmacist | DX: I26.99 Other pulmonary embolism without acute cor pulmonale (principal) | CPT/HCPCS: 85610 ==

== ENCOUNTER 2019-06-22 15:15 | Outpatient (CLI) | payer MEDICARE | END 2019-06-22 15:16 | disposition home or self-care (01) | LOC: LAB.S 15:15 | PROVIDERS: ATTEND Physician Assistant Medical | DX: Z12.5 Encounter for screening for malignant neoplasm of prostate (principal) | CPT/HCPCS: 36415; G0103; 84153 ==

== ENCOUNTER 2019-06-25 15:40 | Outpatient (CLI) | payer MEDICARE | END 2019-06-25 15:41 | disposition home or self-care (01) | LOC: LAB.S 15:40 | PROVIDERS: ATTEND Pharmacist | DX: I26.99 Other pulmonary embolism without acute cor pulmonale (principal) | CPT/HCPCS: 85610 ==

== ENCOUNTER 2019-07-02 07:09 | Outpatient (CLI) | payer MEDICARE | END 2019-07-02 07:10 | disposition home or self-care (01) | LOC: LAB.S 07:09 | PROVIDERS: ATTEND Pharmacist | DX: I26.99 Other pulmonary embolism without acute cor pulmonale (principal) | CPT/HCPCS: 85610 ==

== ENCOUNTER 2019-07-09 07:08 | Outpatient (CLI) | payer MEDICARE | END 2019-07-09 07:09 | disposition home or self-care (01) | LOC: LAB.S 07:08 | PROVIDERS: ATTEND Pharmacist | DX: I26.99 Other pulmonary embolism without acute cor pulmonale (principal) | CPT/HCPCS: 85610 ==

== ENCOUNTER 2019-07-23 07:07 | Outpatient (CLI) | payer MEDICARE | END 2019-07-23 07:08 | disposition home or self-care (01) | LOC: LAB.S 07:07 | PROVIDERS: ATTEND Pharmacist | DX: I26.99 Other pulmonary embolism without acute cor pulmonale (principal) | CPT/HCPCS: 85610 ==

== ENCOUNTER 2019-07-30 07:17 | Outpatient (CLI) | payer MEDICARE | END 2019-07-30 23:59 | disposition home or self-care (01) | LOC: LAB.S 07:17 | PROVIDERS: ATTEND Pharmacist | DX: I26.99 Other pulmonary embolism without acute cor pulmonale (principal) | CPT/HCPCS: 85610 ==

== ENCOUNTER 2019-08-19 07:03 | Outpatient (CLI) | payer MEDICARE | END 2019-08-19 07:04 | disposition home or self-care (01) | LOC: LAB.S 07:03 | PROVIDERS: ATTEND Pharmacist | DX: I26.99 Other pulmonary embolism without acute cor pulmonale (principal) | CPT/HCPCS: 85610 ==

== ENCOUNTER 2019-08-27 07:06 | Outpatient (CLI) | payer MEDICARE | END 2019-08-27 07:07 | disposition home or self-care (01) | LOC: LAB.S 07:06 | PROVIDERS: ATTEND Pharmacist | DX: I26.99 Other pulmonary embolism without acute cor pulmonale (principal) | CPT/HCPCS: 85610 ==

== ENCOUNTER 2019-09-03 07:02 | Outpatient (CLI) | payer MEDICARE ==
--- NOTE | 2019-09-03 12:49 | XRAY Report ---
Reason: BILAT SHOULDERS KNEES Procedure Date: 09/03/2019 Accession Number: [id number] / [id number] Procedure: XR - Shoulder 2 View BILAT CPT Code: Final Report FULL RESULT: EXAM: BILATERAL SHOULDER RADIOGRAPHY EXAM DATE: 09/03/2019 08:43 AM. CLINICAL HISTORY: Joint pain. COMPARISON: CHEST 2 VIEW 08/05/2018 3:24 PM. TECHNIQUE: 2 views each. FINDINGS: The left Y-view is nondiagnostic due to positioning. The left AP view is somewhat limited by overlying pacemaker. Bones: No fracture is detected on either side. Joints: The right glenohumeral and acromioclavicular joints are normally located. Assessment for glenohumeral dislocation of the left shoulder is limited by the nondiagnostic Y-view. Soft tissues: The visualized hemithorax is unremarkable. No soft tissue swelling. Better seen on the 2018 chest radiograph is a compression fracture of the upper thoracic vertebral body. IMPRESSION: Limited examination with no dislocation or fracture detected. If there is concern for dislocation of the left glenohumeral joint, the Y-view could be repeated and an addendum could be issued. RADIA
--- NOTE | 2019-09-03 12:51 | XRAY Report ---
Reason: BILAT SHOULDERS KNEES Procedure Date: 09/03/2019 Accession Number: [id number] / [id number] Procedure: XR - Knee Standing BILAT CPT Code: Final Report FULL RESULT: EXAMS: 1. RIGHT KNEE RADIOGRAPHY 2. LEFT KNEE RADIOGRAPHY EXAM DATE:09/03/2019 09:06 AM. CLINICAL HISTORY:Chronic pain, evaluating arthritis. COMPARISON: None. TECHNIQUE: 2 views each. FINDINGS: Right Knee: Bones: Normal. No fractures or bone lesions. Joints: Mild joint space narrowing of the weightbearing compartments. No joint effusion or dislocation. Soft Tissues: Normal. No soft tissue swelling. Left Knee: Bones: Normal. No fractures or bone lesions. Joints: Mild joint space narrowing of the weightbearing compartments. No joint effusion or dislocation. Soft Tissues: Normal. No soft tissue swelling. IMPRESSION: Mild bilateral joint space narrowing of weightbearing compartments. RADIA
== END 2019-09-03 07:03 | disposition home or self-care (01) ==
LOC: LAB.S 07:02 → DI.S 07:03
PROVIDERS: ATTEND Pharmacist
DX: M25.511 Pain in right shoulder (principal); M25.512 Pain in left shoulder; M25.561 Pain in right knee; M25.562 Pain in left knee; I26.99 Other pulmonary embolism without acute cor pulmonale
CPT/HCPCS: 73565; 85610

== ENCOUNTER 2019-09-10 07:16 | Outpatient (CLI) | payer MEDICARE | END 2019-09-10 07:17 | disposition home or self-care (01) | LOC: LAB.S 07:16 | PROVIDERS: ATTEND Pharmacist | DX: I26.99 Other pulmonary embolism without acute cor pulmonale (principal) | CPT/HCPCS: 85610 ==

== ENCOUNTER 2019-09-18 07:04 | Outpatient (CLI) | payer MEDICARE | END 2019-09-18 07:05 | disposition home or self-care (01) | LOC: LAB.S 07:04 | PROVIDERS: ATTEND Pharmacist | DX: I26.99 Other pulmonary embolism without acute cor pulmonale (principal) | CPT/HCPCS: 85610 ==

== ENCOUNTER 2019-09-24 07:04 | Outpatient (CLI) | payer MEDICARE | END 2019-09-24 07:05 | disposition home or self-care (01) | LOC: LAB.S 07:04 | PROVIDERS: ATTEND Pharmacist | DX: I26.99 Other pulmonary embolism without acute cor pulmonale (principal) | CPT/HCPCS: 85610 ==

== ENCOUNTER 2019-10-01 07:03 | Outpatient (CLI) | payer MEDICARE | END 2019-10-01 07:04 | disposition home or self-care (01) | LOC: LAB.S 07:03 | PROVIDERS: ATTEND Pharmacist | DX: I26.99 Other pulmonary embolism without acute cor pulmonale (principal) | CPT/HCPCS: 85610 ==

== ENCOUNTER 2019-10-14 08:00 | Outpatient (CLI) | payer MEDICARE | END 2019-10-14 23:59 | disposition home or self-care (01) | LOC: LAB.S 08:00 | PROVIDERS: ATTEND Pharmacist | DX: I26.99 Other pulmonary embolism without acute cor pulmonale (principal) | CPT/HCPCS: 85610 ==

== ENCOUNTER 2019-10-22 07:05 | Outpatient (CLI) | payer MEDICARE | END 2019-10-22 07:06 | disposition home or self-care (01) | LOC: LAB.S 07:05 | PROVIDERS: ATTEND Internal Medicine Interventional Cardiology | DX: I26.99 Other pulmonary embolism without acute cor pulmonale (principal); Z51.81 Encounter for therapeutic drug level monitoring | CPT/HCPCS: 85610 ==

== ENCOUNTER 2019-10-22 15:18 | Outpatient (CLI) | payer MEDICARE ==
--- NOTE | 2019-10-22 16:23 | CT Report ---
Reason: WEDGE COMPRESSION OF [facility] LUMBAR VERT Procedure Date: 10/22/2019 Accession Number: [id number] / [id number] Procedure: CT - LUMBAR SPINE WO CPT Code: Final Report FULL RESULT: EXAM: CT LUMBAR SPINE WITHOUT CONTRAST EXAM DATE: 10/22/2019 03:44 PM. CLINICAL HISTORY: WEDGE COMPRESSION OF FRACTURE LUMBAR VERTEBRAL BODY. COMPARISONS: None. TECHNIQUE: Thin-section axial images were acquired of the lumbar spine from T12 to S1 without contrast. Post-processing: Coronal and sagittal reformats. Other: None. In accordance with CT protocol optimization, one or more of the following dose reduction techniques were utilized for this exam: automated exposure control, adjustment of mA and/or KV based on patient size, or use of iterative reconstructive technique. FINDINGS: Alignment: No scoliosis or spondylolisthesis. Bones: Five [id number] lumbar vertebral bodies are present. There are compression fractures of the L1, L3, L4, and L5 vertebral bodies. There is 50% central height loss at L1. There is 40% central height loss at L3. There is 60% central height loss at L4. There is 40% central height loss at L5. Possible linear defect involving inferior endplate of L1. Equivocal small paravertebral edema at L1. There is a partly imaged T12 compression fracture. Disk Levels/Facets: T12-L1: Unremarkable. L1-L2: Unremarkable. L2-L3: There is a broad-based disk bulge. There is mild facet hypertrophy. There is mild central canal narrowing. No neural foraminal narrowing. L3-L4: There is a broad-based disk bulge. There is mild bilateral facet hypertrophy. There is mild central canal narrowing. No neural foraminal narrowing. L4-L5: There is a broad-based disk bulge. There is facet hypertrophy. There is moderate central canal narrowing. There is mild bilateral neural foraminal narrowing. L5-S1: There is moderate bilateral facet hypertrophy. There is no significant neural foraminal narrowing. Musculature: Normal. No fatty atrophy. Other: The visualized retroperitoneum is unremarkable. IMPRESSION: 1. T12, L1, L3, L4, and L5 compression fractures. L1 may be a recent fracture. Others appear remote. MRI can be useful to determine acuity of fractures if clinically indicated. 2. L4-L5 disk bulge and facet hypertrophy with moderate central canal narrowing. 3. L2-L3 and L3-L4 mild central canal narrowing. RADIA The above findings were discussed with RN in dr. Cox's office at time of dictation. Dr Cox by Dr. Maximino Rodriguez at 04:22 PM on 10/22/2019.
--- NOTE | 2019-10-31 02:44 | DEXA Report ---
Reason: OSTEOPOROSIS Procedure Date: 10/22/2019 Accession Number: [id number] / [id number] Procedure: DEX - Dexa Spine and/or Hip CPT Code: Final Report FULL RESULT: EXAM: DUAL EMISSION X-RAY ABSORPTIOMETRY (DXA) SCAN EXAM DATE: 10/22/2019 05:10 PM. CLINICAL HISTORY: Osteoporosis. COMPARISON: 06/28/2017. ADDITIONAL PATIENT INFORMATION: Compression fracture. TECHNIQUE: Dual energy x-ray absorptiometry (DXA) was performed on a [employer] System. Regions measured at the AP spine, femoral neck, and if needed, forearm. TECHNIQUE LIMITATIONS/EXCLUSIONS: None FINDINGS: Lumbar Spine: Bone mineral density 0.981 g/sq cm, T-score -2.0, Z-score -1.2. Bone mineral density change from previous: 6.2%. Femoral Neck: Bone mineral density 0.768 g/sq cm, T-score -2.3, Z-score -0.7. Total Hip: Bone mineral density 0.820 g/sq cm, T-score -2.0, Z-score -0.8. Bone mineral density change from previous: -2.1%. IMPRESSION: Osteopenia. No statistically significant interval change from 06/28/2017. World Health Organization (WHO) Reporting guidelines (based on lowest BMD) for postmenopausal and perimenopausal women, men age 50 years and older: Normal: T-score at or greater than -1.0 Osteopenia: T-score between -1.1 to -2.4 Osteoporosis: T-score at or less than -2.5 RADIA
== END 2019-10-22 15:19 | disposition home or self-care (01) ==
LOC: DI 15:18
PROVIDERS: ATTEND Physician Assistant Medical
DX: S32.050A Wedge compression fracture of fifth lumbar vertebra, initial encounter for closed fracture (principal); S32.040A Wedge compression fracture of fourth lumbar vertebra, initial encounter for closed fracture; S32.019A Unspecified fracture of first lumbar vertebra, initial encounter for closed fracture; S32.039A Unspecified fracture of third lumbar vertebra, initial encounter for closed fracture; S22.089A Unspecified fracture of T11-T12 vertebra, initial encounter for closed fracture; M47.816 Spondylosis without myelopathy or radiculopathy, lumbar region; M47.817 Spondylosis without myelopathy or radiculopathy, lumbosacral region; M48.061 Spinal stenosis, lumbar region without neurogenic claudication; M51.86 Other intervertebral disc disorders, lumbar region; M85.88 Other specified disorders of bone density and structure, other site; I26.99 Other pulmonary embolism without acute cor pulmonale; Z51.81 Encounter for therapeutic drug level monitoring
CPT/HCPCS: 72131; 77080; 85610

== ENCOUNTER 2019-11-05 06:58 | Outpatient (CLI) | payer MEDICARE | END 2019-11-05 06:59 | disposition home or self-care (01) | LOC: LAB.S 06:58 | PROVIDERS: ATTEND Internal Medicine Interventional Cardiology | DX: Z51.81 Encounter for therapeutic drug level monitoring (principal); I26.99 Other pulmonary embolism without acute cor pulmonale | CPT/HCPCS: 85610 ==

== ENCOUNTER 2019-11-12 06:58 | Outpatient (CLI) | payer MEDICARE | END 2019-11-12 06:59 | disposition home or self-care (01) | LOC: LAB.S 06:58 | PROVIDERS: ATTEND Internal Medicine Interventional Cardiology | DX: Z51.81 Encounter for therapeutic drug level monitoring (principal); I26.99 Other pulmonary embolism without acute cor pulmonale | CPT/HCPCS: 85610 ==

== ENCOUNTER 2019-11-19 07:02 | Outpatient (CLI) | payer MEDICARE | END 2019-11-19 07:03 | disposition home or self-care (01) | LOC: LAB.S 07:02 | PROVIDERS: ATTEND Internal Medicine Interventional Cardiology | DX: I26.99 Other pulmonary embolism without acute cor pulmonale (principal); Z51.81 Encounter for therapeutic drug level monitoring | CPT/HCPCS: 85610 ==

== ENCOUNTER 2019-11-26 07:00 | Outpatient (CLI) | payer MEDICARE | END 2019-11-26 07:01 | disposition home or self-care (01) | LOC: LAB.S 07:00 | PROVIDERS: ATTEND Internal Medicine Interventional Cardiology | DX: I26.99 Other pulmonary embolism without acute cor pulmonale (principal); Z51.81 Encounter for therapeutic drug level monitoring; Z79.01 Long term (current) use of anticoagulants | CPT/HCPCS: 85610 ==

== ENCOUNTER 2020-02-02 07:28 | Outpatient (CLI) | payer MEDICARE ==
[2020-02-02 13:39] LABS: INR 2.2 (0.8-1.2); PT - PROTHROMBIN TIME 23.8 secs (9.9-12.6)
== END 2020-02-02 23:59 | disposition home or self-care (01) ==
LOC: LAB.WCP 07:28
PROVIDERS: ATTEND Internal Medicine Interventional Cardiology
DX: I26.99 Other pulmonary embolism without acute cor pulmonale (principal); Z51.81 Encounter for therapeutic drug level monitoring
CPT/HCPCS: 36415; 85610

== ENCOUNTER 2020-03-31 07:27 | Outpatient (CLI) | payer MEDICARE | END 2020-03-31 07:28 | disposition home or self-care (01) | LOC: LAB.S 07:27 | PROVIDERS: ATTEND Internal Medicine Interventional Cardiology | DX: I26.99 Other pulmonary embolism without acute cor pulmonale (principal); Z51.81 Encounter for therapeutic drug level monitoring; Z79.899 Other long term (current) drug therapy | CPT/HCPCS: 85610 ==

== ENCOUNTER 2020-05-26 07:02 | Outpatient (CLI) | payer MEDICARE | END 2020-05-26 07:03 | disposition home or self-care (01) | LOC: LAB.S 07:02 | PROVIDERS: ATTEND Internal Medicine Interventional Cardiology | DX: I26.99 Other pulmonary embolism without acute cor pulmonale (principal); Z51.81 Encounter for therapeutic drug level monitoring | CPT/HCPCS: 85610 ==

== ENCOUNTER 2020-06-14 19:32 | Inpatient (IN) | payer MEDICARE ==
--- NOTE | 2020-06-14 19:47 | ED Physician Documentation ---
PD HPI ABD PAIN - Stated complaint Stated Complaint: BACK PX, RT SIDE ABD PX - Chief complaint Chief Complaint: Abd Pain - History obtained from History obtained from: Patient - History of Present Illness Timing - onset: Today (around noon today) Timing - duration: Hours Timing - details: Gradual onset, Constant, Waxing and waning Pain level now: 5 Quality: Pain Location: RLQ Radiation: Lower back Improved by: Laying still Worsened by: Moving, Palpation Associated symptoms: Nausea (resolved). No: Fever (did not take temperature at home but c/o sweats/chills), Vomiting Similar symptoms before: Has not had sx before Recently seen: Clinic - Additional information Additional information: c/o gradual onset, steadily worsening RLQ abdominal pain since mid-day today. Was seen at clinic and was then sent here due to concern for appendicitis. Review of Systems Constitutional: reports: Chills, Sweats. denies: Fever Eyes: reports: Reviewed and negative Ears: reports: Reviewed and negative Nose: reports: Reviewed and negative Throat: reports: Reviewed and negative Cardiac: reports: Reviewed and negative Respiratory: reports: Reviewed and negative GI: reports: Abdominal Pain, Nausea (resolved). denies: Vomiting, Constipation, Diarrhea : denies: Dysuria, Frequency Skin: denies: Rash Musculoskeletal: reports: Back pain Neurologic: reports: Reviewed and negative PD PAST MEDICAL HISTORY - Past Medical History Cardiovascular: Arrhythmia Respiratory: None Neuro: None Endocrine/Autoimmune: Other GI: None : None HEENT: None Psych: None Musculoskeletal: None Derm: None - Past Surgical History Past Surgical History: Yes General: Colonoscopy Ortho: Arthroscopic surgery Cardiovascular: Valve replacement, Pacemaker - Present Medications Home Medications: Ambulatory Orders Medication Instructions Recorded Confirmed Aspirin 81 mg PO DAILY 02/08/18 Metoprolol Tartrate 25 mg PO BID 02/08/18 Warfarin Sodium 6 mg PO DAILY 02/08/18 Hydrocodone/Acetaminophen 1 - 2 each PO Q6H PRN #14 tablet 04/02/19 [Hydrocodon-Acetaminophen 5-325] diazePAM [Valium] 5 - 10 mg PO TID PRN #15 tablet 04/02/19 - Allergies Allergies/Adverse Reactions: Allergies Allergy/AdvReac Type Severity Reaction Status Date / Time bee venom protein (honey bee) Allergy Edema Verified 06/14/20 19:36 perfume AdvReac Headache Verified 06/14/20 19:36 - Social History Does the pt smoke?: No Smoking Status: Never smoker Does the pt drink ETOH?: No Does the pt have substance abuse?: No - Immunizations Immunizations are current?: Yes - POLST Patient has POLST: No PD ED PE NORMAL - Vitals Vital signs reviewed: Yes - General General: Alert and oriented X 3, No acute distress, Well developed/nourished - HEENT HEENT: Moist mucous membranes - Neck Neck: Supple, no meningeal sign - Cardiac Cardiac: No murmur - Respiratory Respiratory: No respiratory distress, Clear bilaterally - Abdomen Abdomen: Soft, Non distended - Back Back: No CVA TTP - Derm Derm: Normal color, Warm and dry - Extremities Extremities: No edema PD ED PE EXPANDED - Cardiac Cardiac: Regular Rate, Irregularly irregular - Abdomen Abdomen: Tender to palpation, Rebound, Generalized/diffuse (predominantly RLQ) Results - Vitals Vitals: Vital Signs - 24 hr 06/14/20 19:36 Temperature 37.2 C Heart Rate 68 Respiratory 14 Rate Blood Pressure 117/65 O2 Saturation 98 Oxygen O2 Source Room air - Labs Labs: Laboratory Tests 06/14/20 06/14/20 06/14/20 19:55 19:55 19:55 WBC 7.8 RBC 4.23 L Hgb 13.4 L Hct 40.0 L MCV 94.6 H MCH 31.7 H MCHC 33.5 RDW 12.4 Plt Count 101 L MPV 10.2 Neut # (Auto) 6.3 Lymph # (Auto) 0.7 L [place] # (Auto) 0.7 Eos # (Auto) 0.0 Baso # (Auto) 0.0 Absolute Nucleated RBC 0.00 Nucleated RBC % 0.0 PT 20.0 H INR 1.9 H APTT 32.7 Sodium 133 L Potassium 3.8 Chloride 95 L Carbon Dioxide 28 Anion Gap 10.0 BUN 25 H Creatinine 0.7 Estimated GFR (MDRD) 109 Glucose 108 H Calcium 8.6 Total Bilirubin 1.1 H AST 24 ALT 25 Alkaline Phosphatase 63 Total Protein 6.5 L Albumin 4.0 Globulin 2.5 Albumin/Globulin Ratio 1.6 Lipase 31 - Rads (name of study) CT A/P w/ IV contrast Radiology: Prelim report reviewed, See rad report PD MEDICAL DECISION MAKING - ED course Complexity details: reviewed results, re-evaluated patient, considered differential, d/w patient ED course: CT A/P c/w SBO and patient is having significant painful discomfort and, later in ED stay, nausea. D/W Dr. Herman, accepts admission to hospitalist service. Departure - Departure Disposition: 66 [facility] DC/Xfer Clinical Impression: Small bowel obstruction Condition: Good Discharge Date/Time: 06/14/20 23:00
[2020-06-14] MEDS ORDERED: SODIUM CHLORIDE 0.9% 1,000 ML IV STA (20:03)
[2020-06-14 20:17] LABS: BASOPHILS % (AUTO) 0.4 %; EOSINOPHILS % (AUTO) 0.5 %; HGB - HEMOGLOBIN 13.4 g/dL (14.0-18.0); LYMPHOCYTES # (AUTO) 0.7 10^3/uL (1.5-3.5); LYMPHOCYTES % (AUTO) 8.5 %; MEAN CORPUSCULAR HEMOGLOBIN 31.7 pg (27.0-31.0); MEAN CORPUSCULAR HGB CONC 33.5 g/dL (32.0-36.0); MEAN CORPUSCULAR VOLUME 94.6 fL (80.0-94.0); MEAN PLATELET VOLUME 10.2 fL (7.4-11.4); MONOCYTES # (AUTO) 0.7 10^3/uL (0.0-1.0); MONOCYTES % (AUTO) 9.3 %; NEUTROPHILS # (AUTO) 6.3 10^3/uL (1.5-6.6); NEUTROPHILS % (AUTO) 80.9 %; PLT - PLATELET COUNT 101 10^3/uL (130-450); RED BLOOD COUNT 4.23 10^6/uL (4.70-6.10); RED CELL DISTRIBUTION WIDTH 12.4 % (12.0-15.0); WHITE BLOOD COUNT 7.8 x10^3/uL (4.8-10.8)
[2020-06-14 20:26] LABS: ALBUMIN/GLOBULIN RATIO 1.6 (1.0-2.2); BILIRUBIN,TOTAL 1.1 mg/dL (0.2-1.0); CALCIUM 8.6 mg/dL (8.5-10.3); CREATININE 0.7 mg/dL (0.6-1.2); INR 1.9 (0.8-1.2); TOTAL PROTEIN 6.5 g/dL (6.7-8.2)
[2020-06-14 20:33] LABS: PARTIAL THROMBOPLASTIN TIME 32.7 secs (24.9-33.3)
[2020-06-14] MEDS ORDERED: IOVERSOL 320 100 ML VIAL IVP ONE ×2 (20:35→20:56)
--- NOTE | 2020-06-14 21:43 | CT Report ---
PROCEDURE: Abdomen/Pelvis W INDICATIONS: RLQ pain CONTRAST: IV CONTRAST: Optiray 320 ml: 100 PO CONTRAST: *NO PO CONTRAST TECHNIQUE: After the administration of contrast, 5 mm thick sections acquired from the diaphragms to the sym physis. 5 mm thick coronal and sagittal reformats were acquired. For radiation dose reduction, the following was used: automated exposure control, adjustment of mA and/or kV according to patient size . COMPARISON: None. FINDINGS: Image quality: Excellent. ABDOMEN: Lung bases: Lung bases are clear. Heart size is normal. Cardiac pacer leads noted. Solid organs: Liver and spleen are normal in size and enhancement. Gallbladder is contracted Bilia ry system is non dilated. Pancreas enhances normally. No adrenal nodules. Kidneys demonstrate norm al size and enhancement, without hydronephrosis. Large 5.3 cm left renal cyst. Small 1.1 cm right claudia al cyst. Peritoneum and bowel: Multiple mildly dilated, fluid-filled loops of small bowel are noted. Loops of small bowel are dilated up to 3.2 cm. Transition zone is in the mid ileum within the mid pelvis (seri es 7, image 39). There is mild circumferential wall thickening at the transition zone compatible with nonspecific enteritis. Moderate amount of stool noted throughout the colon. No free fluid or air. Th e appendix is not visualized and cannot be evaluated. Nodes and vessels: No retroperitoneal or mesenteric adenopathy by size criteria. Aorta and inferior vena cava are normal in size. Miscellaneous: No ventral hernias. PELVIS: Genitourinary: Bladder wall thickness is normal. Miscellaneous: No inguinal hernias or adenopathy. Bones: No suspicious bony lesions. Loss of height noted in the T11, T12, L1, no 3, L4 and L5 vertebr al bodies compatible with compression fractures. The L1 compression fracture may be acute/subacute. A dditional compression fractures appear chronic. IMPRESSION: 1. Small bowel obstruction with transition zone in the mid ileum at the level of the midpelvis. There is focal circumferential wall thickening at the transition zone compatible with a nonspecific enteri tis. Differential diagnosis includes infectious, inflammatory and neoplastic etiologies. 2. The appendix is not visualized and cannot be evaluated. 3. No free fluid or free air. 4. Possible acute/subacute L1 compression fracture. Chronic appearing T11, T12, L3, L4 and L5 lee silas fractures. Reviewed by: Adelina Baker MD, PhD on 06/14/2020 9:42 PM PDT Approved by: Adelina Baker MD, PhD on 06/14/2020 9:42 PM PDT Station ID: [id number]
[2020-06-14] MEDS ORDERED: oxyCODONE 5 MG TABLET PO PRN (22:19)
[2020-06-14] MEDS ORDERED: SODIUM CHLORIDE FLUSH 0.9% 10 ML SYRINGE IVP PRN (22:19)
[2020-06-14] MEDS ORDERED: ONDANSETRON 4 MG/2 ML VIAL IVP PRN (22:19)
[2020-06-14] MEDS ORDERED: MORPHINE 2 MG/ML CARPUJECT IVP PRN (22:19)
[2020-06-14] MEDS ORDERED: ACETAMINOPHEN 325 MG TABLET PO PRN (22:19)
--- NOTE | 2020-06-14 22:22 | HISTORY & PHYSICAL EXAMINATION ---
Chief Complaint - Chief Complaint Chief Complaint: abdominal pain History of Present Illness - Admitted From Admitted From:: [facility] ED - History Obtained From Records Reviewed: Yes History obtained from: Patient - History of Present Illness HPI Comment/Other: Patient is a 79-year-old male with history of atrial fibrillation status post cardioversion in October 2019 and currently on metoprolol, diltiazem and Coumadin who presented to the ED with complaint of abdominal pain. Initially it was right lower quadrant painHowever it seems to be more diffuse now. This started around lunch. He felt bloated, went to the bathroom and later tried to get some sleep. But by 5 PM the pain was significantly worse so he drove himself to the [facility] in [place]. He was advised to go to the emergency room for evaluation. In the ED work-up included a CT of the abdomen pelvis which showed a bowel obstruction with a transition point In the mid ileum at the level of the mid pelvis. There was also focal circumferential wall thickening at the transition zone compatible with a nonspecific enteritis. As a result he was presented for admission. At bedside the patient appears uncomfortable. He seems to be writhing in pain. He denied chest pain, but has some dyspnea with worsening abdominal pain upon taking deep breaths. He reported chills but no fever. He has been nauseous but not vomited. He denies any previous occurrence of similar symptoms. He was given 2 mg of morphine in the ED with minimal improvement in his pain. History - Past Medical History Cardiovascular: reports: Atrial fibrillation, Arrhythmia Respiratory: reports: None Neuro: reports: None Endocrine/Autoimmune: reports: None GI: reports: None : reports: None HEENT: reports: None Psych: reports: None Musculoskeletal: reports: None Derm: reports: None MRSA Hx?: No - Past Surgical History General: reports: Colonoscopy, Other Ortho: reports: Arthroscopic surgery Cardiovascular: reports: Valve replacement, Pacemaker, Other (Cardioversion in October 2019) - Family & Social History Family History: Mother: , Father: Family History Comment/Other: Father at 84 from heart disease. Mother at 64 from kidney disease. Patient has 1 brother and 2 sisters. He is a second child. Living arrangement: At home Living Situation: With family Social History Notes: Patient is a former smoker. He quit smoking in 1961. He denied alcohol use or recreational substance use. - POLST Patient has POLST: No Meds/Allgy - Home Medications Home Medications: Ambulatory Orders Medication Instructions Recorded Confirmed Aspirin 81 mg PO DAILY 02/08/18 Metoprolol Tartrate 25 mg PO BID 02/08/18 Warfarin Sodium 6 mg PO DAILY 02/08/18 Hydrocodone/Acetaminophen 1 - 2 each PO Q6H PRN #14 tablet 04/02/19 [Hydrocodon-Acetaminophen 5-325] diazePAM [Valium] 5 - 10 mg PO TID PRN #15 tablet 04/02/19 - Allergies Allergies/Adverse Reactions: Allergies Allergy/AdvReac Type Severity Reaction Status Date / Time bee venom protein (honey bee) Allergy Edema Verified 06/14/20 19:36 perfume AdvReac Headache Verified 06/14/20 19:36 Review of Systems - Constitutional Constitutional: denies: Fatigue, Fever - Eyes Eyes: denies: Pain - Ears, Nose & Throat Ears, Nose & Throat: denies: Ear pain - Cardiovascular Cariovascular: denies: Irregular heart rate, Palpitations, Chest pain, Edema, Lightheadedness, Syncope - Gastrointestinal Gastrointestinal: reports: Abdominal pain, Nausea. denies: Diarrhea, Vomiting - Genitourinary Genitourinary: denies: Dysuria, Frequency, Urgency, Hematuria - Musculoskeletal Musculoskeletal: denies: Muscle pain, Back pain - Integumentary Integumentary: denies: Rash, Pruritis, Lesions - Neurological Neurological: denies: General weakness, Focal weakness, Headache - Psychiatric Psychiatric: denies: Depression - Endocrine Endocrine: denies: Polyuria, Polydypsia - Hematologic/Lymphatic Hematologic/Lymphatic: denies: Anemia, Bruising, Petechiae Prior Level of Functionality: He is independent of activities of daily living Exam - Vital Signs Vital Signs: Vital Signs x48h Temp Pulse Resp BP Pulse Ox 06/14/20 19:36 37.2 C 68 14 117/65 98 - Physical Exam General Appearance: positive: Alert, Moderate distress, Severe distress Eyes Bilateral: positive: PERRL, EOMI ENT: positive: No signs of dehydration Neck: positive: No JVD, Trachea midline Respiratory: positive: Chest non-tender, No respiratory distress, Breath sounds nml. negative: Wheezes, Rales, Rhonchi Cardiovascular: positive: Regular rate & rhythm, No murmur Abdomen: positive: Nml bowel sounds, Tenderness, Guarding, Rebound Back: positive: Nml inspection Skin: positive: Color nml, No rash, Warm Extremities: positive: Full ROM, Nml appearance, No pedal edema Neurologic/Psychiatric: positive: Oriented x3, Mood/affect nml Conclusion/Plan - Problem List (1) Small bowel obstruction Conclusion/Plan: Patient made n.p.o. Receiving IV hydration with normal saline at 125 mils per hour. Pain management PRN. Medication for nausea PRN. If no improvement in the next 12 hours, will consider general surgery consult. If patient's abdominal pain worsens, will place an NG tube. (2) Atrial fibrillation Conclusion/Plan: Patient underwent a cardioversion in October 2019. He is currently in sinus rhythm. He is currently on metoprolol, diltiazem and Coumadin. Will continue. Patient has a pacemaker (3) Hx of valvular heart disease Conclusion/Plan: Status post valvular repair. Patient is on Coumadin and also takes a baby aspirin. - Lab Results Fish Bones: 06/14/20 19:55 06/14/20 19:55 Core Measures - Anticipated LOS I expect patient to be DC'd or transferred within 96 hours.: Yes - DVT/VTE - Prophylaxis VTE/DVT Device ordered at admit?: Yes
[2020-06-14] MEDS ORDERED: MORPHINE 2 MG/ML CARPUJECT IVP STA (22:56)
[2020-06-14] MEDS ORDERED: SODIUM CHLORIDE 0.9% 1,000 ML IV SCH (23:00)
[2020-06-14] MEDS ORDERED: LIDOCAINE VISCOUS 2% 15 ML UDC MM PRN (23:51)
[2020-06-15] MEDS: SODIUM CHLORIDE FLUSH 0.9% 10 ML SYRINGE IVP SCH ×3 (00:20→15:41)
[2020-06-15 05:31] LABS: BASOPHILS % (AUTO) 0.3 %; EOSINOPHILS % (AUTO) 0.4 %; HGB - HEMOGLOBIN 12.1 g/dL (14.0-18.0); LYMPHOCYTES # (AUTO) 1.6 10^3/uL (1.5-3.5); LYMPHOCYTES % (AUTO) 16.3 %; MEAN CORPUSCULAR HEMOGLOBIN 30.6 pg (27.0-31.0); MEAN CORPUSCULAR HGB CONC 31.9 g/dL (32.0-36.0); MEAN CORPUSCULAR VOLUME 95.9 fL (80.0-94.0); MEAN PLATELET VOLUME 10.1 fL (7.4-11.4); MONOCYTES # (AUTO) 0.7 10^3/uL (0.0-1.0); MONOCYTES % (AUTO) 7.1 %; NEUTROPHILS # (AUTO) 7.5 10^3/uL (1.5-6.6); NEUTROPHILS % (AUTO) 75.7 %; PLT - PLATELET COUNT 89 10^3/uL (130-450); RED BLOOD COUNT 3.95 10^6/uL (4.70-6.10); RED CELL DISTRIBUTION WIDTH 12.4 % (12.0-15.0)
[2020-06-15 05:36] LABS: CALCIUM 8.4 mg/dL (8.5-10.3); CREATININE 0.8 mg/dL (0.6-1.2)
[2020-06-15] MEDS: PANTOPRAZOLE 40 MG VIAL IVP SCH (06:11)
[2020-06-15] MEDS ORDERED: SODIUM CHLORIDE 0.9% 1,000 ML IV SCH (08:33)
[2020-06-15] MEDS ORDERED: LORazepam 2 MG/ML VIAL IVP PRN (08:33)
[2020-06-15] MEDS ORDERED: METOPROLOL 5 MG/5 ML VIAL IVP PRN (08:39)
[2020-06-15] MEDS: ENOXAPARIN 40 MG/0.4 ML SYRINGE SUBQ SCH (09:05)
[2020-06-15 09:24] LABS: BILIRUBIN,URINE NEGATIVE (NEGATIVE); GLUCOSE, URINE (UA) NEGATIVE (NEGATIVE); KETONES,URINE (UA) NEGATIVE (NEGATIVE); LEUKOCYTE ESTERASE, URINE NEGATIVE (NEGATIVE); NITRITE,URINE NEGATIVE (NEGATIVE); OCCULT BLOOD,URINE NEGATIVE (NEGATIVE); PH,URINE 7.5 PH (5.0-7.5); PROTEIN,URINE NEGATIVE (NEGATIVE); UROBILINOGEN,URINE 0.2 (NORMAL) E.U./dL (NORMAL)
[2020-06-15 09:27] LABS: CLARITY,URINE CLEAR (CLEAR)
[2020-06-15 09:37] LABS: BACTERIA,URINE None Seen /HPF (None Seen); RBC,URINE None Seen /HPF (0-5); SQUAMOUS EPITHELIAL CELL,UR NONE SEEN (<= Few)
--- NOTE | 2020-06-15 12:53 | XRAY Report ---
PROCEDURE: Abdomen 1 View X-Ray INDICATIONS: pt feel better,want to eat,pt has SBO if resolved? TECHNIQUE: 1 view of the abdomen were acquired. COMPARISON: CT of abdomen and pelvis dated 06/14/2020 FINDINGS: Surgical changes and devices: Pacemaker leads are seen in the region of right atrium and right ventri addy.. Bowel: No pneumoperitoneum. The bowel gas pattern is nonspecific. Air and fecal matter is seen in t he region of lower sigmoid colon/rectum. Soft tissues: No masses; visualized solid organ contours appear normal in size. No suspicious abdom inal calcifications. Bones: No suspicious bony abnormalities. IMPRESSION: Finding may represent resolving small bowel obstruction versus low-grade partial small b owel obstruction. No gross peritoneal free air. Reviewed by: Espinoza Vilchis MD on 06/15/2020 12:51 PM PDT Approved by: Espinoza Vilchis MD on 06/15/2020 12:51 PM PDT Station ID: [id number]
[2020-06-15] MEDS: D5.45NS W/20 MEQ KCL 1,000 ML IV SCH (13:29)
--- NOTE | 2020-06-15 14:44 | PHARMACY PROGRESS NOTE ---
- Best Possible Medication History Admit Date and Time: 06/14/205 Processed by: Pharmacy Medication History completed: Yes Patient Interview: Completed Secondary Source(s): Pharmacy records, Insurance records As the person ultimately responsible for medication therapy, providers are able to order a medication from an existing home medication list in [facility] via the "Reconcile Routine" prior to Confirmation of that medication by client support analyst. Such practice is discouraged except when the physician, in their clinical judgment, deems that a medical need exists for a medication without regard to previous use.
--- NOTE | 2020-06-15 14:47 | PROVIDER PROGRESS NOTE ---
Subjective - Prog Note Date Prog Note Date: 06/15/20 - Subjective Pt reports feeling: Improved Subjective: Patient denying nausea, vomiting, patient reported abdominal pain is much better than before, patient abdominal x-ray does show obstruction is in the resolving. Patient feels hungry and asking for diet, will start the patient with clear liquid diet. Patient tolerated clear liquid diet well. we will watch overnight and if patient continue improved and encourage patient ambulation and tomorrow we will advance patient diet. Patient reported he had 2 bowel movement yesterday but today he has no bowel movement and did not pass gas yet. Current Medications - Current Medications Current Medications: Active Medications Acetaminophen (Tylenol) 650 mg PO Q4HR PRN PRN Reason: Pain 1 to 4 Aspirin ([facility] [place] Aspirin) 81 mg PO DAILY [facility] Enoxaparin Sodium (Lovenox) 40 mg SUBQ DAILY [facility] Last Admin: 06/15/20 09:05 Dose: Not Given Documented by: Potassium Chloride/Dextrose/Sod Cl (D5.45ns W/20 Meq Kcl) 1,000 mls @ 100 mls/hr IV .Q10H [facility] Last Admin: 06/15/20 13:29 Dose: 100 mls/hr Documented by: Lidocaine HCl (Xylocaine Viscous 2%) 5 ml MM ONCE PRN PRN Reason: Mouth Sore Pain Stop: 06/15/20 23:50 Last Admin: 06/15/20 00:56 Dose: 5 ml Documented by: Lorazepam (Ativan Inj (Vial)) 0.5 mg IVP Q8H PRN PRN Reason: Anxiety Metoprolol Succinate (Toprol Xl) 50 mg PO BID [facility] Metoprolol Tartrate (Lopressor Inj) 5 mg IVP Q6H PRN PRN Reason: Tachycardia Morphine Sulfate (Morphine (Carpuject)) 2 mg IVP Q2HR PRN PRN Reason: Pain 8 to 10 Last Admin: 06/15/20 01:12 Dose: 2 mg Documented by: Ondansetron HCl (Zofran Inj) 4 mg IVP Q6HR PRN PRN Reason: Nausea / Vomiting Oxycodone HCl (Roxicodone) 5 mg PO Q4HR PRN PRN Reason: Pain 5 to 7 Pantoprazole Sodium (Protonix) 40 mg IVP QDAC [facility] Last Admin: 06/15/20 06:11 Dose: 40 mg Documented by: Sodium Chloride (Normal Saline Flush 0.9%) 10 ml IVP PRN PRN PRN Reason: NEEDED PER PROVIDER ORDERS Sodium Chloride (Normal Saline Flush 0.9%) 10 ml IVP 0100,0900,1700 HUGO Last Admin: 06/15/20 15:41 Dose: Not Given Documented by: Aspirin 81 mg PO DAILY 02/08/18 Cholecalciferol [Vitamin D3] 5,000 units PO DAILY 06/15/20 Metoprolol Succinate [Toprol Xl] 50 mg PO BID 06/15/20 Warfarin Sodium 3 mg PO SUTUTHSA 06/15/20 Warfarin Sodium 6 mg PO MOWEFR 06/15/20 Objective - Vital Signs/Intake & Output Vital Signs: Vital Signs x48h Temp Pulse Pulse Resp BP Pulse Ox 06/15/20 13:19 36.4 C L 64 16 116/70 100 06/15/20 08:00 36.4 C L 64 16 100 06/15/20 07:46 36.5 C 61 16 99/63 96 Intake & Output: Intake & Output 06/12/20 06/13/20 06/14/20 06/15/20 23:59 23:59 23:59 23:59 Intake Total 1729.167 Output Total 1550 Balance 179.167 - Objective General Appearance: positive: No acute distress, Alert. negative: Lethargic Eyes Bilateral: positive: Normal inspection, PERRL, No lid inflammation ENT: positive: ENT inspection nml, No signs of dehydration. negative: Purulent nasal drainage Neck: positive: Nml inspection, Thyroid nml, Trachea midline. negative: Thyromegaly, Stiff neck, Tracheal deviation Respiratory: positive: Chest non-tender, No respiratory distress, Breath sounds nml. negative: Wheezes, Rales, Rhonchi Cardiovascular: positive: Regular rate & rhythm, No murmur. negative: Tachycardia, Bradycardia, Systolic murmur, Diastolic murmur Peripheral Pulses: 2+ Radial (R), 2+ Radial (L) Abdomen: positive: Non-tender, No organomegaly, Nml bowel sounds, No distention. negative: Tenderness, Guarding, Rebound Back: positive: Nml inspection. negative: CVA tenderness (R), CVA tenderness (L) Skin: positive: Color nml, No rash, Warm, Dry. negative: Cyanosis, Diaphoresis, Pallor Extremities: positive: Non-tender, Full ROM, Nml appearance. negative: Calf tenderness, Fred's sign/cords Neurologic/Psychiatric: positive: Oriented x3, Motor nml, Sensation nml, Mood/affect nml. negative: Weakness, Sensory loss, Facial droop, Slurred/abnml speech, Depressed mood/affect - Lab Results Fish Bones: 06/15/20 05:15 06/15/20 05:15 Other Labs: Lab Results x24hrs 06/15/20 06/15/20 06/15/20 Range/Units 08:53 05:15 05:15 WBC 10.0 (4.8-10.8) x10^3/uL RBC 3.95 L (4.70-6.10) 10^6/uL Hgb 12.1 L (14.0-18.0) g/dL Hct 37.9 L (42.0-52.0) % MCV 95.9 H (80.0-94.0) fL MCH 30.6 (27.0-31.0) pg MCHC 31.9 L (32.0-36.0) g/dL RDW 12.4 (12.0-15.0) % Plt Count 89 L (130-450) 10^3/uL MPV 10.1 (7.4-11.4) fL Neut # (Auto) 7.5 H (1.5-6.6) 10^3/uL Lymph # (Auto) 1.6 (1.5-3.5) 10^3/uL Milam # (Auto) 0.7 (0.0-1.0) 10^3/uL Eos # (Auto) 0.0 (0.0-0.7) 10^3/uL Baso # (Auto) 0.0 (0.0-0.1) 10^3/uL Absolute Nucleated RBC 0.00 x10^3/uL Nucleated RBC % 0.0 /100WBC PT (9.9-12.6) secs INR (0.8-1.2) APTT (24.9-33.3) secs Sodium 137 (135-145) mmol/L Potassium 4.2 (3.5-5.0) mmol/L Chloride 104 (101-111) mmol/L Carbon Dioxide 25 (21-32) mmol/L Anion Gap 8.0 (6-13) BUN 17 (6-20) mg/dL Creatinine 0.8 (0.6-1.2) mg/dL Estimated GFR (MDRD) 93 (>89) Glucose 115 H (70-100) mg/dL Calcium 8.4 L (8.5-10.3) mg/dL Total Bilirubin (0.2-1.0) mg/dL AST (10-42) IU/L ALT (10-60) IU/L Alkaline Phosphatase (42-121) IU/L Total Protein (6.7-8.2) g/dL Albumin (3.2-5.5) g/dL Globulin (2.1-4.2) g/dL Albumin/Globulin Ratio (1.0-2.2) Lipase (22-51) U/L Urine Color YELLOW Urine Clarity CLEAR (CLEAR) Urine pH 7.5 (5.0-7.5) PH Ur Specific [place] 1.015 (1.002-1.030) Urine Protein NEGATIVE (NEGATIVE) mg/dL Urine Glucose (UA) NEGATIVE (NEGATIVE) mg/dL Urine Ketones NEGATIVE (NEGATIVE) mg/dL Urine Occult Blood NEGATIVE (NEGATIVE) Urine Nitrite NEGATIVE (NEGATIVE) Urine Bilirubin NEGATIVE (NEGATIVE) Urine Urobilinogen 0.2 (NORMAL) (NORMAL) E.U./dL Ur Leukocyte Esterase NEGATIVE (NEGATIVE) Urine RBC None Seen (0-5) /HPF Urine WBC 0-3 (0-3) /HPF Ur Squamous Epith Cells NONE SEEN (<= Few) Urine Bacteria None Seen (None Seen) /HPF Urine Culture Comments NOT INDICATED 06/14/20 06/14/20 06/14/20 Range/Units 19:55 19:55 19:55 WBC 7.8 (4.8-10.8) x10^3/uL RBC 4.23 L (4.70-6.10) 10^6/uL Hgb 13.4 L (14.0-18.0) g/dL Hct 40.0 L (42.0-52.0) % MCV 94.6 H (80.0-94.0) fL MCH 31.7 H (27.0-31.0) pg MCHC 33.5 (32.0-36.0) g/dL RDW 12.4 (12.0-15.0) % Plt Count 101 L (130-450) 10^3/uL MPV 10.2 (7.4-11.4) fL Neut # (Auto) 6.3 (1.5-6.6) 10^3/uL Lymph # (Auto) 0.7 L (1.5-3.5) 10^3/uL Milam # (Auto) 0.7 (0.0-1.0) 10^3/uL Eos # (Auto) 0.0 (0.0-0.7) 10^3/uL Baso # (Auto) 0.0 (0.0-0.1) 10^3/uL Absolute Nucleated RBC 0.00 x10^3/uL Nucleated RBC % 0.0 /100WBC PT 20.0 H (9.9-12.6) secs INR 1.9 H (0.8-1.2) APTT 32.7 (24.9-33.3) secs Sodium 133 L (135-145) mmol/L Potassium 3.8 (3.5-5.0) mmol/L Chloride 95 L (101-111) mmol/L Carbon Dioxide 28 (21-32) mmol/L Anion Gap 10.0 (6-13) BUN 25 H (6-20) mg/dL Creatinine 0.7 (0.6-1.2) mg/dL Estimated GFR (MDRD) 109 (>89) Glucose 108 H (70-100) mg/dL Calcium 8.6 (8.5-10.3) mg/dL Total Bilirubin 1.1 H (0.2-1.0) mg/dL AST 24 (10-42) IU/L ALT 25 (10-60) IU/L Alkaline Phosphatase 63 (42-121) IU/L Total Protein 6.5 L (6.7-8.2) g/dL Albumin 4.0 (3.2-5.5) g/dL Globulin 2.5 (2.1-4.2) g/dL Albumin/Globulin Ratio 1.6 (1.0-2.2) Lipase 31 (22-51) U/L Urine Color Urine Clarity (CLEAR) Urine pH (5.0-7.5) PH Ur Specific [place] (1.002-1.030) Urine Protein (NEGATIVE) mg/dL Urine Glucose (UA) (NEGATIVE) mg/dL Urine Ketones (NEGATIVE) mg/dL Urine Occult Blood (NEGATIVE) Urine Nitrite (NEGATIVE) Urine Bilirubin (NEGATIVE) Urine Urobilinogen (NORMAL) E.U./dL Ur Leukocyte Esterase (NEGATIVE) Urine RBC (0-5) /HPF Urine WBC (0-3) /HPF Ur Squamous Epith Cells (<= Few) Urine Bacteria (None Seen) /HPF Urine Culture Comments ABX Reporting Has patient been on IV antibiotics over the past 48 hours?: No Assessment/Plan - Problem List (1) Small bowel obstruction Impression: Improved, patient tolerated clear liquid diet, abdominal pain is much better, encourage continue ambulation. Continue consult with surgeon, we will do another xray study in tomorrow morning and advance diet as the patient tolerated (2) Atrial fibrillation Stable, will resume patient metoprolol, We will hold Coumadin for possible surgery if obstruction do not resolve.Continue baby aspirin continue Lovenox For DVT prophylaxis (3) Hx of valvular heart disease Conclusion/Plan: Status post valvular repair. hold Coumadin as above reason, continue takes a baby aspirin. Daily PT/INR monitor
[2020-06-15] MEDS: METOPROLOL SUCCINATE 50 MG TABLET PO SCH (20:17)
[2020-06-15] MEDS ORDERED: METOPROLOL SUCCINATE 50 MG TABLET PO SCH (21:00)
[2020-06-16] MEDS: SODIUM CHLORIDE FLUSH 0.9% 10 ML SYRINGE IVP SCH ×2 (01:05→13:18)
[2020-06-16] MEDS: D5.45NS W/20 MEQ KCL 1,000 ML IV SCH (01:05)
[2020-06-16 05:02] LABS: BASOPHILS % (AUTO) 0.6 %; EOSINOPHILS # (AUTO) 0.2 10^3/uL (0.0-0.7); EOSINOPHILS % (AUTO) 3.2 %; HGB - HEMOGLOBIN 12.3 g/dL (14.0-18.0); LYMPHOCYTES # (AUTO) 1.6 10^3/uL (1.5-3.5); LYMPHOCYTES % (AUTO) 33.2 %; MEAN CORPUSCULAR HEMOGLOBIN 31.3 pg (27.0-31.0); MEAN CORPUSCULAR HGB CONC 32.2 g/dL (32.0-36.0); MEAN CORPUSCULAR VOLUME 97.2 fL (80.0-94.0); MEAN PLATELET VOLUME 10.5 fL (7.4-11.4); MONOCYTES # (AUTO) 0.4 10^3/uL (0.0-1.0); MONOCYTES % (AUTO) 8.1 %; NEUTROPHILS # (AUTO) 2.7 10^3/uL (1.5-6.6); NEUTROPHILS % (AUTO) 54.7 %; PLT - PLATELET COUNT 85 10^3/uL (130-450); RED BLOOD COUNT 3.93 10^6/uL (4.70-6.10); RED CELL DISTRIBUTION WIDTH 12.4 % (12.0-15.0); WHITE BLOOD COUNT 4.9 x10^3/uL (4.8-10.8)
[2020-06-16 05:10] LABS: CALCIUM 8.5 mg/dL (8.5-10.3); CREATININE 0.6 mg/dL (0.6-1.2); PT - PROTHROMBIN TIME 21.6 secs (9.9-12.6)
[2020-06-16] MEDS: PANTOPRAZOLE 40 MG VIAL IVP SCH (06:04)
[2020-06-16] MEDS: ENOXAPARIN 40 MG/0.4 ML SYRINGE SUBQ SCH (07:34)
[2020-06-16] MEDS ORDERED: ASPIRIN CHEW 81 MG TABLET PO SCH (09:00)
--- NOTE | 2020-06-16 09:15 | XRAY Report ---
PROCEDURE: Abdomen 1 View X-Ray INDICATIONS: check if still SBO TECHNIQUE: 1 view of the abdomen were acquired. COMPARISON: CT 06/14/2020, and x-ray 06/15/2020 FINDINGS: Surgical changes and devices: Monitoring wires overlie the upper abdomen and there are partially imag ed pacemaker leads. Bowel: No pneumoperitoneum. Decreased distention of air-filled small bowel loops in the left abdomen . There is slight increase in gaseous distention of the transverse colon.. Soft tissues: No masses; visualized solid organ contours appear normal in size. No suspicious abdom inal calcifications. Bones: No suspicious bony abnormalities. IMPRESSION: 1. Improvement in bowel gas pattern compared to the prior day's radiograph. 2. No dilated small bowel loops. Reviewed by: Irina Alcantara MD on 06/16/2020 8:13 AM CYNTHIA Approved by: Irina Alcantara MD on 06/16/2020 8:13 AM CYNTHIA Station ID: [id number]
[2020-06-16] MEDS: METOPROLOL SUCCINATE 50 MG TABLET PO SCH (09:29)
--- NOTE | 2020-06-16 11:25 | CONSULTATION NOTE ---
Referring Provider Name of Referring Provider:: Hospitalist Service Consult Date: 06/15/20 Chief Complaint - Chief Complaint Chief Complaint: Abdominal pain History of Present Illness - Admitted From Admitted From:: home - History Obtained From Records Reviewed: EMR, Hospitalist Notes History obtained from: Patient Exam Limitations: None, patient away during first attempted encounter, returned later to see - History of Present Illness HPI Comment/Other: 79-year-old male with past history of left inguinal hernia who presents with right inguinal pain/abdominal pain with associated nausea and CT scan consistent with small bowel obstruction. No other prior abdominal surgical procedures. He had no episodes of emesis since his admission. No NG tube has been placed. Hospitalist called for consultation for surgical management. He is reported flatus and bowel movements. He reiterated the right inguinal pain at the time of this encounter. Denied any palpable lumps or associated complaints. History - Past Medical History Cardiovascular: reports: Arrhythmia Respiratory: reports: None Neuro: reports: None Endocrine/Autoimmune: reports: Other GI: reports: None : reports: None HEENT: reports: None Psych: reports: None Musculoskeletal: reports: None Derm: reports: None MRSA Hx?: No - Past Surgical History General: reports: Colonoscopy Ortho: reports: Arthroscopic surgery Cardiovascular: reports: Valve replacement, Pacemaker - Family & Social History Family History: Mother: , Father: Family History Comment/Other: Father at 84 from heart disease. Mother at 64 from kidney disease. Patient has 1 brother and 2 sisters. He is a second child. Living arrangement: At home Living Situation: With family Social History Notes: Patient is a former smoker. He quit smoking in 1960. He denied alcohol use or recreational substance use. - POLST Patient has POLST: No Meds/Allgy - Home Medications Home Medications: Ambulatory Orders Medication Instructions Recorded Confirmed Aspirin 81 mg PO DAILY 02/08/18 06/15/20 Cholecalciferol [Vitamin D3] 5,000 units PO DAILY 06/15/20 06/15/20 Metoprolol Succinate [Toprol Xl] 50 mg PO BID 06/15/20 06/15/20 Warfarin Sodium 3 mg PO SUTUTHSA 06/15/20 06/15/20 Warfarin Sodium 6 mg PO MOWEFR 06/15/20 06/15/20 - Allergies Allergies/Adverse Reactions: Allergies Allergy/AdvReac Type Severity Reaction Status Date / Time bee venom protein (honey bee) Allergy Edema Verified 06/14/20 19:36 perfume AdvReac Headache Verified 06/14/20 19:36 Review of Systems - Constitutional Constitutional: reports: Poor appetite - Respiratory Respiratory: denies: Cough, Wheezing, Hemoptysis - Gastrointestinal Gastrointestinal: reports: Abdominal pain, Abdominal distention, Nausea Exam - Vital Signs Vital Signs: Vital Signs x48h Temp Pulse Resp BP BP Pulse Ox 06/16/20 09:27 76 16 121/76 100 06/16/20 07:57 36.5 C 60 16 113/69 100 06/16/20 05:00 36.4 C L 60 18 110/68 94 - Physical Exam General Appearance: positive: No acute distress, Alert Eyes Bilateral: positive: Normal inspection, PERRL, EOMI ENT: positive: ENT inspection nml Neck: positive: Nml inspection Respiratory: positive: Chest non-tender, No respiratory distress Abdomen: positive: Non-tender, No distention. negative: Tenderness, Guarding, Rebound Rectal: positive: Other (Deferred) Skin: positive: Color nml Extremities: positive: Full ROM, Nml appearance Neurologic/Psychiatric: positive: Oriented x3, CN's nml (2-12), Motor nml, Sensation nml Conclusion/Plan - Diagnosis Diagnosis: 1. Enteritis, unknown etiology. 2. Small bowel obstruction, pelvic transition point. 3. Systemic anticoagulation on Coumadin. 4. History of cardiovascular disease, multiple - Plan Plan: 79-year-old male with multiple comorbid states including coronary valvular d isease, systemic anticoagulation, history of prior inguinal hernia repair who presents with small bowel obstruction. Imaging concerning for mid ileal enteritis with circumferential thickening. Such focal findings are in and of itself concerning for malignancy amongst others. Last colonoscopy in 2014. We will need to review report. No other significant history or family history concerning for inflammatory bowel disease or other etiologies. Patient denies any sick contacts, travel, or other contributing factors. The patient will need to be obtained for stool studies to rule out an infectious etiology of his enteritis. Second I will need to review imaging to assure that obstruction is not also compounded by a right inguinal hernia which would be the most common cause, though the patient on physical exam is without any signs. Also the patient may benefit from colonoscopy to rule out any associated colitis. Would plan the followin. Stool studies, continued bowel rest with clear liquids only, await results from infectious enteritis/colitis work-up. 2. Imaging review to assure there is no associated occult hernias that alluded examination. 3. Consideration for either inpatient or outpatient colonoscopy. 4. If indeed inguinal hernia is contributing etiology, would prefer to do this as outpatient electively. 5. We will continue to follow. Please note that voice recognition software was used to transcribe this note and inadvertent errors might persist in spite of review and editing. I am obliged to you for your attention. I am thankful to you for allowing me to participate with you in this care of this patient. - Lab Results Fish Bones: 06/16/20 04:45 06/16/20 04:45 - Diagnostic Imaging Results Diagnostic Imaging Results Comments: CT scan abdomen pelvis impressions: 1. Small bowel obstruction with transition zone in the mid ileum at the mid pelvis. There is focal circumferential wall thickening at the transition zone compatible with nonspecific enteritis. Differential diagnosis includes infectious, inflammatory and neoplastic etiologies. 2. The appendix is not visualized and cannot be evaluated. 3. No free fluid or free air. 4. Possible acute subacute L1 compression fracture chronic appearing T11, T12, L3, L4 and L5 compression fractures.
[2020-06-16] MEDS ORDERED: WARFARIN 1 MG TABLET PO SCH (12:00)
[2020-06-16 12:13] VITALS: BP 121/75
--- NOTE | 2020-06-16 13:31 | Discharge Plan ---
Discharge Plan Problem Reviewed?: Yes Disposition: Home, Self Care Condition: Stable Diet: Soft Activity Restrictions: Activity as Tolerated Shower Restrictions: No (fall precaution) Instruction Topics: Obstruction Sm Bowel Health Concerns: small bowel obstruction Plan of Treatment: You had bowel movement, he tolerated regular diet, he has no more abdominal pain, No nausea or vomiting. At this point, your small bowel obstruction is resolved. Per surgeon recommendation, advise you follow-up with your primary care in 1 to 2 weeks to have stool culture and schedule for colonoscopy as outpatient. Care Goals: stabilization and improvement/resolve of your medical conditions Assessment: discussed the care plan with you, you understood and agreed. Additional Instructions or Follow Up instructions: You may follow-up with your primary care in 1 to 2 weeks, follow-up with surgeon for colonoscopy as outpatient. Should your symptoms return or worsen, you may present ER or call 911 for help. No Smoking: If you smoke, Please STOP! Call for help. Follow-up with: KRYSTEN ROJAS PA-C [Primary Care Provider] -
--- NOTE | 2020-06-16 13:36 | DISCHARGE SUMMARY ---
"Discharge Summary Admit Date: 06/14/20 Discharge Date: 06/16/20 Discharging Provider: Andrez Saleem Primary Care Provider: Latoya Almanza Condition at Discharge: Stable Discharge Disposition: 01 Home, Self Care Discharge Facility Name: home - DIAGNOSES Discharge Diagnoses with Status of Each Condition: (1) Small bowel obstruction Resolved, patient tolerated regular diet, without nausea vomiting or abdominal pain. Patient also had bowel movement in the hospital. GI surgeon recommended patient go home follow with PCP to have stool culture and follow-up with surgeon for outpatient colonoscopy. Explain discharge instruction and plan to patient, patient understood and state he will follow-up (2) Atrial fibrillation Stable (3) Hx of valvular heart disease Stable - HPI History of Present Illness: refer from Dr. Herman's HPI on 06/14/2020 Patient is a 79-year-old male with history of atrial fibrillation status post cardioversion in October 2019 and currently on metoprolol, diltiazem and Coumadin who presented to the ED with complaint of abdominal pain. Initially it was right lower quadrant painHowever it seems to be more diffuse now. This started around lunch. He felt bloated, went to the bathroom and later tried to get some sleep. But by 5 PM the pain was significantly worse so he drove himself to the [facility] in [place]. He was advised to go to the emergency room for evaluation. In the ED work-up included a CT of the abdomen pelvis which showed a bowel obstruction with a transition point In the mid ileum at the level of the mid pelvis. There was also focal circumferential wall thickening at the transition zone compatible with a nonspecific enteritis. As a result he was presented for admission. At bedside the patient appears uncomfortable. He seems to be writhing in pain. He denied chest pain, but has some dyspnea with worsening abdominal pain upon taking deep breaths. He reported chills but no fever. He has been nauseous but not vomited. He denies any previous occurrence of similar symptoms. He was given 2 mg of morphine in the ED with minimal improvement in his pain. - CONSULTS | PROCEDURES Consultations: Dr. Dejesus Procedures: no procedure - HOSPITAL COURSE Hospital Course: patient was admitted for abdominal pain. Patient was found to have small bowel obstruction, patient was consulted with a surgeon Dr. Dejesus. Patient had bowel rest, and NPO with intravenous IV fluids, patient was encouraged to ambulate. Patient has no nausea or vomiting, patient has no NG tube needed. After treated in the hospital, patient have bowel movement, Patient has no nausea or vomiting, patient has no more abdominal pain and he tolerated regular diet. Surgeon released the patient, recommended patient had stool culture and colonoscopy as outpatient. pt also had salesperson men's hats consult - ALLERGIES Allergies/Adverse Reactions: Allergies Allergy/AdvReac Type Severity Reaction Status Date / Time bee venom protein (honey bee) Allergy Edema Verified 06/14/20 19:36 perfume AdvReac Headache Verified 06/14/20 19:36 - MEDICATIONS Home Medications: Ambulatory Orders Medication Instructions Recorded Confirmed Aspirin 81 mg PO DAILY 02/08/18 06/15/20 Cholecalciferol [Vitamin D3] 5,000 units PO DAILY 06/15/20 06/15/20 Metoprolol Succinate [Toprol Xl] 50 mg PO BID 06/15/20 06/15/20 Warfarin Sodium 3 mg PO SUTUTHSA 06/15/20 06/15/20 Warfarin Sodium 6 mg PO MOWEFR 06/15/20 06/15/20 - PHYSICAL EXAM AT DISCHARGE General Appearance: positive: No acute distress, Alert. negative: Lethargic Eyes Bilateral: positive: Normal inspection, PERRL, No lid inflammation ENT: positive: ENT inspection nml, No signs of dehydration. negative: Dry mucous membranes Neck: positive: Nml inspection, Thyroid nml, Trachea midline. negative: Thyromegaly, Stiff neck, Tracheal deviation Respiratory: positive: Chest non-tender, No respiratory distress, Breath sounds nml. negative: Wheezes, Rales, Rhonchi Cardiovascular: positive: Regular rate & rhythm, Systolic murmur, Diastolic murmur. negative: Tachycardia, Bradycardia Peripheral Pulses: positive: 2+ Abdomen: positive: Non-tender, No organomegaly, Nml bowel sounds, No distention. negative: Tenderness, Guarding, Rebound Back: positive: Nml inspection. negative: CVA tenderness (R), CVA tenderness (L) Skin: positive: Color nml, No rash, Warm, Dry. negative: Cyanosis, Diaphoresis, Pallor Extremities: positive: Non-tender, Full ROM, Nml appearance. negative: Calf tenderness, Fred's sign/cords Neurologic/Psychiatric: positive: Oriented x3, Motor nml, Sensation nml, Mood/affect nml. negative: Weakness, Sensory loss, Facial droop, Slurred/abnml speech, Depressed mood/affect - LABS Result Diagrams: 06/16/20 04:45 06/16/20 04:45 - FOLLOW UP Follow Up: You had bowel movement, he tolerated regular diet, he has no more abdominal pain , No nausea or vomiting. At this point, your small bowel obstruction is resolved. Per surgeon recommendation, advise you follow-up with your primary care in 1 to 2 weeks to have stool culture and schedule for colonoscopy as outpatient. You may follow-up with your primary care in 1 to 2 weeks, follow-up with surgeon for colonoscopy as outpatient. Should your symptoms return or worsen, you may present ER or call 911 for help. - TIME SPENT Time Spent in Discharge (Minutes): 30"
[2020-06-17] MEDS ORDERED: WARFARIN 1 MG TABLET PO SCH (11:49)
[2020-06-17] MEDS ORDERED: WARFARIN 5 MG TABLET PO SCH (12:22)
== END 2020-06-16 13:30 | disposition home or self-care (01) | DRG 390 ==
LOC: ED 19:32 → MS2 22:19
PROVIDERS: ADMIT Internal Medicine; ATTEND Internal Medicine
DX: K56.609 Unspecified intestinal obstruction, unspecified as to partial versus complete obstruction (principal); I48.91 Unspecified atrial fibrillation; Z79.82 Long term (current) use of aspirin; Z79.01 Long term (current) use of anticoagulants; Z95.0 Presence of cardiac pacemaker; Z95.2 Presence of prosthetic heart valve; Z87.891 Personal history of nicotine dependence
CPT/HCPCS: 36415; 74018; 74177; 80048; 80053; 81001; 83690; 85025; 85610; 85730; 99284; 99285; A9270; Q9967; 87086

== ENCOUNTER 2020-06-24 07:00 | Outpatient (CLI) | payer MEDICARE | END 2020-06-24 23:59 | disposition home or self-care (01) | LOC: LAB.R 07:00 | PROVIDERS: ATTEND Surgery | DX: R10.31 Right lower quadrant pain (principal) | CPT/HCPCS: 81599; 87045; 87046; 87177; 87209; 87427 ==

== ENCOUNTER 2020-07-06 08:07 | Day surgery (SDC) | payer MEDICARE ==
[2020-07-06] MEDS ORDERED: LACTATED RINGERS 1,000 ML IV ONE ×2 (08:27→09:50)
[2020-07-06] MEDS ORDERED: fentaNYL 250 MCG/5 ML VIAL IVP ONE (08:42)
[2020-07-06] MEDS ORDERED: GLUCAGON 1 MG/ML VIAL IM ONE (08:42)
[2020-07-06] MEDS ORDERED: fentaNYL 100 MCG/2 ML VIAL IVP ONE (08:42)
[2020-07-06] MEDS ORDERED: MIDAZOLAM 2 MG/2 ML VIAL IVP ONE (08:42)
[2020-07-06 10:53] VITALS: BP 105/76
== END 2020-07-06 08:08 | disposition home or self-care (01) ==
LOC: SDS 08:07
PROVIDERS: ATTEND Surgery
DX: R10.31 Right lower quadrant pain (principal); D64.9 Anemia, unspecified; Z86.010 Personal history of colon polyps; K64.8 Other hemorrhoids; Z87.891 Personal history of nicotine dependence; Q43.8 Other specified congenital malformations of intestine; Z79.01 Long term (current) use of anticoagulants
CPT/HCPCS: 45378; J3010; J7120

== ENCOUNTER 2020-08-11 17:17 | Outpatient (CLI) | payer MEDICARE | END 2020-08-11 17:18 | disposition home or self-care (01) | LOC: LAB.S 17:17 | PROVIDERS: ATTEND Internal Medicine Interventional Cardiology | DX: I26.99 Other pulmonary embolism without acute cor pulmonale (principal); Z51.81 Encounter for therapeutic drug level monitoring | CPT/HCPCS: 85610 ==

== ENCOUNTER 2020-08-25 07:09 | Outpatient (CLI) | payer MEDICARE | END 2020-08-25 07:10 | disposition home or self-care (01) | LOC: LAB.S 07:09 | PROVIDERS: ATTEND Internal Medicine Interventional Cardiology | DX: I26.99 Other pulmonary embolism without acute cor pulmonale (principal); Z51.81 Encounter for therapeutic drug level monitoring | CPT/HCPCS: 85610 ==

== ENCOUNTER 2020-09-08 07:10 | Outpatient (CLI) | payer MEDICARE | END 2020-09-08 07:11 | disposition home or self-care (01) | LOC: LAB.S 07:10 | PROVIDERS: ATTEND Internal Medicine Interventional Cardiology | DX: I26.99 Other pulmonary embolism without acute cor pulmonale (principal); Z51.81 Encounter for therapeutic drug level monitoring | CPT/HCPCS: 85610 ==

== ENCOUNTER 2020-09-22 07:02 | Outpatient (CLI) | payer MEDICARE | END 2020-09-22 07:03 | disposition home or self-care (01) | LOC: LAB.S 07:02 | PROVIDERS: ATTEND Internal Medicine Interventional Cardiology | DX: I26.99 Other pulmonary embolism without acute cor pulmonale (principal); Z51.81 Encounter for therapeutic drug level monitoring | CPT/HCPCS: 85610 ==

== ENCOUNTER 2020-09-29 07:22 | Outpatient (CLI) | payer MEDICARE | END 2020-09-29 07:23 | disposition home or self-care (01) | LOC: LAB.S 07:22 | PROVIDERS: ATTEND Internal Medicine Interventional Cardiology | DX: I26.99 Other pulmonary embolism without acute cor pulmonale (principal); Z51.81 Encounter for therapeutic drug level monitoring; Z79.899 Other long term (current) drug therapy | CPT/HCPCS: 85610 ==

== ENCOUNTER 2020-10-27 07:03 | Outpatient (CLI) | payer MEDICARE | END 2020-10-27 07:04 | disposition home or self-care (01) | LOC: LAB.S 07:03 | PROVIDERS: ATTEND Internal Medicine Interventional Cardiology | DX: I26.99 Other pulmonary embolism without acute cor pulmonale (principal); Z51.81 Encounter for therapeutic drug level monitoring | CPT/HCPCS: 85610 ==

== ENCOUNTER 2020-11-10 07:04 | Outpatient (CLI) | payer MEDICARE | END 2020-11-10 07:05 | disposition home or self-care (01) | LOC: LAB.S 07:04 | PROVIDERS: ATTEND Internal Medicine Interventional Cardiology | DX: I26.99 Other pulmonary embolism without acute cor pulmonale (principal); Z51.81 Encounter for therapeutic drug level monitoring | CPT/HCPCS: 85610 ==

== ENCOUNTER 2020-11-24 07:04 | Outpatient (CLI) | payer MEDICARE | END 2020-11-24 07:05 | disposition home or self-care (01) | LOC: LAB.S 07:04 | PROVIDERS: ATTEND Internal Medicine Interventional Cardiology | DX: I26.99 Other pulmonary embolism without acute cor pulmonale (principal); Z51.81 Encounter for therapeutic drug level monitoring | CPT/HCPCS: 85610 ==

== ENCOUNTER 2020-12-08 12:02 | Outpatient (CLI) | payer MEDICARE | END 2020-12-08 12:03 | disposition home or self-care (01) | LOC: LAB.S 12:02 | PROVIDERS: ATTEND Internal Medicine Interventional Cardiology | DX: I26.99 Other pulmonary embolism without acute cor pulmonale (principal); Z51.81 Encounter for therapeutic drug level monitoring | CPT/HCPCS: 85610 ==

== ENCOUNTER 2020-12-15 07:07 | Outpatient (CLI) | payer MEDICARE | END 2020-12-15 07:08 | disposition home or self-care (01) | LOC: LAB.S 07:07 | PROVIDERS: ATTEND Internal Medicine Interventional Cardiology | DX: I26.99 Other pulmonary embolism without acute cor pulmonale (principal); Z51.81 Encounter for therapeutic drug level monitoring; Z79.899 Other long term (current) drug therapy | CPT/HCPCS: 85610 ==

== ENCOUNTER 2021-02-02 07:10 | Outpatient (CLI) | payer MEDICARE | END 2021-02-02 07:11 | disposition home or self-care (01) | LOC: LAB.S 07:10 | PROVIDERS: ATTEND Internal Medicine Interventional Cardiology | DX: I26.99 Other pulmonary embolism without acute cor pulmonale (principal); Z51.81 Encounter for therapeutic drug level monitoring | CPT/HCPCS: 36416; 85610 ==

== ENCOUNTER 2021-02-17 07:12 | Outpatient (CLI) | payer MEDICARE | END 2021-02-17 07:13 | disposition home or self-care (01) | LOC: LAB.S 07:12 | PROVIDERS: ATTEND Internal Medicine Interventional Cardiology | DX: I26.99 Other pulmonary embolism without acute cor pulmonale (principal); Z51.81 Encounter for therapeutic drug level monitoring; Z79.899 Other long term (current) drug therapy | CPT/HCPCS: 36416; 85610 ==

== ENCOUNTER 2021-03-16 07:28 | Outpatient (CLI) | payer MEDICARE | END 2021-03-16 07:29 | disposition home or self-care (01) | LOC: LAB.S 07:28 | PROVIDERS: ATTEND Internal Medicine Interventional Cardiology | DX: I26.99 Other pulmonary embolism without acute cor pulmonale (principal); Z51.81 Encounter for therapeutic drug level monitoring; Z79.899 Other long term (current) drug therapy | CPT/HCPCS: 36416; 85610 ==

== ENCOUNTER 2021-03-23 07:06 | Outpatient (CLI) | payer MEDICARE | END 2021-03-23 07:07 | disposition home or self-care (01) | LOC: LAB.S 07:06 | PROVIDERS: ATTEND Internal Medicine Interventional Cardiology | DX: I26.99 Other pulmonary embolism without acute cor pulmonale (principal); Z51.81 Encounter for therapeutic drug level monitoring | CPT/HCPCS: 36416; 85610 ==

== ENCOUNTER 2021-03-30 07:12 | Outpatient (CLI) | payer MEDICARE | END 2021-03-30 07:13 | disposition home or self-care (01) | LOC: LAB.S 07:12 | PROVIDERS: ATTEND Internal Medicine Interventional Cardiology | DX: I26.99 Other pulmonary embolism without acute cor pulmonale (principal); Z51.81 Encounter for therapeutic drug level monitoring | CPT/HCPCS: 36416; 85610 ==

== ENCOUNTER 2021-04-06 07:11 | Outpatient (CLI) | payer MEDICARE | END 2021-04-06 07:12 | disposition home or self-care (01) | LOC: LAB.S 07:11 | PROVIDERS: ATTEND Internal Medicine Interventional Cardiology | DX: I26.99 Other pulmonary embolism without acute cor pulmonale (principal); Z51.81 Encounter for therapeutic drug level monitoring | CPT/HCPCS: 36416; 85610 ==

== ENCOUNTER 2021-04-13 07:09 | Outpatient (CLI) | payer MEDICARE | END 2021-04-13 07:10 | disposition home or self-care (01) | LOC: LAB.S 07:09 | PROVIDERS: ATTEND Internal Medicine Interventional Cardiology | DX: I26.99 Other pulmonary embolism without acute cor pulmonale (principal); Z51.81 Encounter for therapeutic drug level monitoring | CPT/HCPCS: 36416; 85610 ==

== ENCOUNTER 2021-04-20 15:40 | Outpatient (CLI) | payer MEDICARE | END 2021-04-20 15:41 | disposition home or self-care (01) | LOC: LAB.S 15:40 | PROVIDERS: ATTEND Internal Medicine Interventional Cardiology | DX: I26.99 Other pulmonary embolism without acute cor pulmonale (principal); Z51.81 Encounter for therapeutic drug level monitoring | CPT/HCPCS: 36416; 85610 ==

== ENCOUNTER 2021-04-25 15:52 | Outpatient (CLI) | payer MEDICARE | END 2021-04-25 15:53 | disposition home or self-care (01) | LOC: COV 15:52 | PROVIDERS: ATTEND Nurse Practitioner Family | DX: Z01.812 Encounter for preprocedural laboratory examination (principal); I48.19 Other persistent atrial fibrillation; Z20.822 Contact with and (suspected) exposure to COVID-19 ==

== ENCOUNTER 2021-05-04 07:07 | Outpatient (CLI) | payer MEDICARE | END 2021-05-04 07:08 | disposition home or self-care (01) | LOC: LAB.S 07:07 | PROVIDERS: ATTEND Internal Medicine Interventional Cardiology | DX: I26.99 Other pulmonary embolism without acute cor pulmonale (principal); Z51.81 Encounter for therapeutic drug level monitoring | CPT/HCPCS: 36416; 85610 ==

== ENCOUNTER 2021-05-11 07:00 | Outpatient (CLI) | payer MEDICARE | END 2021-05-11 07:01 | disposition home or self-care (01) | LOC: LAB.S 07:00 | PROVIDERS: ATTEND Internal Medicine Interventional Cardiology | DX: I26.99 Other pulmonary embolism without acute cor pulmonale (principal); Z51.81 Encounter for therapeutic drug level monitoring | CPT/HCPCS: 36416; 85610 ==

== ENCOUNTER 2021-05-18 07:08 | Outpatient (CLI) | payer MEDICARE | END 2021-05-18 07:09 | disposition home or self-care (01) | LOC: LAB.S 07:08 | PROVIDERS: ATTEND Internal Medicine Interventional Cardiology | DX: Z53.9 Procedure and treatment not carried out, unspecified reason (principal); I26.99 Other pulmonary embolism without acute cor pulmonale; Z51.81 Encounter for therapeutic drug level monitoring ==

== ENCOUNTER 2021-05-18 07:15 | Outpatient (CLI) | payer MEDICARE ==
[2021-05-18 15:24] LABS: ABSOLUTE RETICS # AUTO 0.028 10^6/uL (0.020-0.110); BASOPHILS % (AUTO) 0.7 %; EOSINOPHILS # (AUTO) 0.1 10^3/uL (0.0-0.7); EOSINOPHILS % (AUTO) 3.1 %; HCT - HEMATOCRIT 40.9 % (42.0-52.0); HGB - HEMOGLOBIN 13.3 g/dL (14.0-18.0); LYMPHOCYTES # (AUTO) 1.7 10^3/uL (1.5-3.5); LYMPHOCYTES % (AUTO) 37.6 %; MEAN CORPUSCULAR HEMOGLOBIN 30.6 pg (27.0-31.0); MEAN CORPUSCULAR HGB CONC 32.5 g/dL (32.0-36.0); MEAN CORPUSCULAR VOLUME 94.2 fL (80.0-94.0); MEAN PLATELET VOLUME 10.9 fL (7.4-11.4); MONOCYTES # (AUTO) 0.5 10^3/uL (0.0-1.0); NEUTROPHILS # (AUTO) 2.2 10^3/uL (1.5-6.6); NEUTROPHILS % (AUTO) 48.4 %; PLT - PLATELET COUNT 109 10^3/uL (130-450); RED BLOOD COUNT 4.34 10^6/uL (4.70-6.10); RED CELL DISTRIBUTION WIDTH 13.2 % (12.0-15.0); RETICULOCYTE COUNT % (AUTO) 0.65 % (0.5-2.3); WHITE BLOOD COUNT 4.5 x10^3/uL (4.8-10.8)
== END 2021-05-18 07:16 | disposition home or self-care (01) ==
LOC: LAB.S 07:15
PROVIDERS: ATTEND Internal Medicine Interventional Cardiology
DX: I26.99 Other pulmonary embolism without acute cor pulmonale (principal); Z51.81 Encounter for therapeutic drug level monitoring; R79.1 Abnormal coagulation profile; D64.9 Anemia, unspecified; Z79.01 Long term (current) use of anticoagulants; Z95.0 Presence of cardiac pacemaker; Z95.2 Presence of prosthetic heart valve; I48.91 Unspecified atrial fibrillation
CPT/HCPCS: 36415; 85025; 85045; 85610

== ENCOUNTER 2021-05-25 07:02 | Outpatient (CLI) | payer MEDICARE | END 2021-05-25 07:03 | disposition home or self-care (01) | LOC: LAB.S 07:02 | PROVIDERS: ATTEND Internal Medicine Interventional Cardiology | DX: I26.99 Other pulmonary embolism without acute cor pulmonale (principal); Z51.81 Encounter for therapeutic drug level monitoring | CPT/HCPCS: 36416; 85610 ==

== ENCOUNTER 2021-07-06 07:03 | Outpatient (CLI) | payer MEDICARE | END 2021-07-06 07:04 | disposition home or self-care (01) | LOC: LAB.S 07:03 | PROVIDERS: ATTEND Internal Medicine Interventional Cardiology | DX: I26.99 Other pulmonary embolism without acute cor pulmonale (principal); Z51.81 Encounter for therapeutic drug level monitoring | CPT/HCPCS: 36416; 85610 ==

== ENCOUNTER 2021-08-03 07:02 | Outpatient (CLI) | payer MEDICARE | END 2021-08-03 07:03 | disposition home or self-care (01) | LOC: LAB.S 07:02 | PROVIDERS: ATTEND Internal Medicine Interventional Cardiology | DX: I26.99 Other pulmonary embolism without acute cor pulmonale (principal); Z51.81 Encounter for therapeutic drug level monitoring | CPT/HCPCS: 36416; 85610 ==

== ENCOUNTER 2021-09-20 15:27 | Outpatient (CLI) | payer MEDICARE | END 2021-09-20 15:28 | disposition home or self-care (01) | LOC: LAB.S 15:27 | PROVIDERS: ATTEND Internal Medicine Interventional Cardiology | DX: I26.99 Other pulmonary embolism without acute cor pulmonale (principal); Z51.81 Encounter for therapeutic drug level monitoring | CPT/HCPCS: 36416; 85610 ==

== ENCOUNTER 2021-11-16 12:19 | Outpatient (CLI) | payer MEDICARE | END 2021-11-16 12:20 | disposition home or self-care (01) | LOC: LAB.S 12:19 | PROVIDERS: ATTEND Internal Medicine Interventional Cardiology | DX: I26.99 Other pulmonary embolism without acute cor pulmonale (principal); Z51.81 Encounter for therapeutic drug level monitoring | CPT/HCPCS: 36416; 85610 ==

== ENCOUNTER 2021-12-05 07:15 | Outpatient (CLI) | payer MEDICARE ==
--- NOTE | 2021-12-05 11:01 | CT Report ---
PROCEDURE: IAC'S WO INDICATIONS: Sudden hearing loss COMPARISON: None. TECHNIQUE: Noncontrast 0.6 mm thick direct axial and coronal sections acquired through each temporal bone separa tely. For radiation dose reduction, the following was used: automated exposure control, adjustment of mA and/or kV according to patient size. FINDINGS: Image quality: Excellent. RIGHT: External auditory canal: Canal has a normal appearance. Middle ear: The middle ear structures, including the ossicles and tympanic membrane, appear normal. No abnormal fluid or soft tissue density. Inner ear: Inner ear is normally formed and appears unremarkable. Facial nerve appears normal throu ghout is course. Mastoids: Mastoid air cells are clear. LEFT: External auditory canal: Canal has a normal appearance. Middle ear: The middle ear structures, including the ossicles and tympanic membrane, appear normal. No abnormal fluid or soft tissue density. Inner ear: Inner ear is normally formed and appears unremarkable. Facial nerve appears normal throu ghout its course. Mastoids: Mastoid air cells are clear. MISCELLANEOUS: Visualized surrounding bones appear unremarkable. Visualized intracranial structures , including the cerebellopontine angle cisterns, appear normal. IMPRESSION: Normal temporal bone study. Reviewed by: Leonides Redmond MD on 12/05/2021 10:59 AM PDT Approved by: Leonides Redmond MD on 12/05/2021 10:59 AM PDT Station ID: [id number]
== END 2021-12-05 07:16 | disposition home or self-care (01) ==
LOC: DI 07:15
PROVIDERS: ATTEND Otolaryngology
DX: H91.21 Sudden idiopathic hearing loss, right ear (principal)

== ENCOUNTER 2021-12-14 07:03 | Outpatient (CLI) | payer MEDICARE | END 2021-12-14 07:04 | disposition home or self-care (01) | LOC: LAB.S 07:03 | PROVIDERS: ATTEND Internal Medicine Interventional Cardiology | DX: I26.99 Other pulmonary embolism without acute cor pulmonale (principal); Z51.81 Encounter for therapeutic drug level monitoring | CPT/HCPCS: 36416; 85610 ==

== ENCOUNTER 2022-01-04 10:41 | Day surgery (SDC) | payer MEDICARE ==
[2022-01-04] MEDS ORDERED: CEFAZOLIN SODIUM IN 0.9 % NACL 2 GM/50 ML BAG IV ONE (10:53)
[2022-01-04] MEDS ORDERED: BUPIVACAINE 0.25% PF 30 ML VIAL ONE (10:56)
[2022-01-04] MEDS ORDERED: LIDOCAINE-MPF 1% 30 ML VIAL ONE (10:58)
--- NOTE | 2022-01-04 11:15 | ANESTHESIA ---
Pre-Anesthesia VS, & Labs - Diagnosis right inguinal hernia - Procedure Open Right inguinal hernia repair Vital Signs: Temp Pulse Resp BP Pulse Ox 36.1 C L 60 12 126/92 H 100 01/04/22 11:06 01/04/22 11:06 01/04/22 11:06 01/04/22 11:06 01/04/22 11:06 Height: 5 ft 10 in Weight (kg): 71 kg Body Mass Index: 22.4 BMI Classification: Healthy weight - NPO >8 hours - Lab Results Lab results reviewed: Yes Home Medications and Allergies Home Medications: Ambulatory Orders Sotalol [Betapace] 80 mg PO BID 12/28/21 Cholecalciferol [Vitamin D3] 5,000 units PO DAILY 06/15/20 Warfarin Sodium 3 - 6 mg PO DAILY 06/15/20 Sotalol [Betapace] 80 mg PO BID 12/28/21 Allergies/Adverse Reactions: Allergies Allergy/AdvReac Type Severity Reaction Status Date / Time perfume AdvReac Headache Verified 10/24/21 16:04 Anes History & Medical History - Anesthetic History Anesthesia Complications: reports: No previous complications Family history of Anesthesia Complications: Denies Family history of Malignant Hyperthermia: Denies - Medical History Cardiovascular: reports: Atrial fibrillation, Valve disorder (s/p AVR 2016), Other (dual chamber pacer) Pulmonary: reports: None Gastrointestinal: reports: Colon polyps, Chronic constipation Urinary: reports: None Neuro: reports: None Musculoskeletal: reports: Osteoarthritis Endocrine/Autoimmune: reports: Other Blood Disorders: reports: None Skin: reports: None Smoking Status: Never smoker - Surgical History General: reports: Other Cardiothoracic: reports: Pacemaker Orthopedic: reports: Arthroscopic surgery Results - Echo Results Echo Results: Report reviewed (EF 60%, Mild MR) Exam General: Alert, Oriented x3, Cooperative, No acute distress Dental: WNL, Partials Upper Mouth Openin Fingerbreadth Neck Mobility: Normal Mallampati classification: II Plan Anesthesia Type: General (backup), MAC Consent for Procedure(s) Verified and Reviewed: Yes Code Status: Attempt Resuscitation ASA classification: 3-Severe systemic disease Is this case an emergency?: No
[2022-01-04] MEDS ORDERED: PROPOFOL 500 MG/50 ML 500 MG/50 ML VIAL ONE ×2 (11:17→12:25)
--- NOTE | 2022-01-04 11:23 | HISTORY & PHYSICAL EXAMINATION ---
Chief Complaint - Chief Complaint Chief Complaint: right groin bulge and pain History of Present Illness - History Obtained From Records Reviewed: yes History obtained from: pt Exam Limitations: none - History of Present Illness HPI Comment/Other: right groin bulge and pain. getting worse History - Past Medical History Cardiovascular: reports: Atrial fibrillation, Valve disorder, Other Respiratory: reports: None Neuro: reports: None Endocrine/Autoimmune: reports: Other GI: reports: Colon polyps, Chronic constipation : reports: None HEENT: reports: Chronic vision loss Psych: reports: None Musculoskeletal: reports: Osteoarthritis Derm: reports: None MRSA Hx?: No - Past Surgical History General: reports: Other Ortho: reports: Arthroscopic surgery Cardiovascular: reports: Pacemaker - Family & Social History Family History: Mother: , Father: Family History Comment/Other: Father at 84 from heart disease. Mother at 64 from kidney disease. Patient has 1 brother and 2 sisters. He is a second child. Social History Notes: Patient is a former smoker. He quit smoking in 1960. He denied alcohol use or recreational substance use. - POLST Patient has POLST: No Meds/Allgy - Home Medications Home Medications: Ambulatory Orders Medication Instructions Recorded Confirmed Cholecalciferol [Vitamin D3] 5,000 units PO DAILY 06/15/20 01/04/22 Warfarin Sodium 3 - 6 mg PO DAILY 06/15/20 01/04/22 Sotalol [Betapace] 80 mg PO BID 12/28/21 01/04/22 - Allergies Allergies/Adverse Reactions: Allergies Allergy/AdvReac Type Severity Reaction Status Date / Time perfume AdvReac Headache Verified 10/24/21 16:04 Review of Systems - Other Findings Other Findings: 10 pt ros as above otherwise unremarkable Exam - Vital Signs Vital Signs: Vital Signs x48h Temp Pulse Resp BP Pulse Ox 01/04/22 11:06 36.1 C L 60 12 126/92 H 100 - Physical Exam General Appearance: positive: No acute distress, Alert Eyes Bilateral: positive: PERRL, EOMI, No scleral icterus ENT: positive: Pharynx nml, No signs of dehydration Neck: positive: No JVD Respiratory: positive: No respiratory distress, Breath sounds nml Cardiovascular: positive: Irregularly irregular Abdomen: positive: Non-tender, No distention, Other (right inguinal hernia present) Neurologic/Psychiatric: positive: Oriented x3 Conclusion/Plan - Problem List (1) Inguinal hernia of right side without obstruction or gangrene Conclusion/Plan: plan open repair with mesh. parq held and consent obtained - Lab Results Lab results reviewed: Yes
[2022-01-04] MEDS ORDERED: LACTATED RINGERS 1,000 ML IV ONE (11:26)
[2022-01-04] MEDS ORDERED: ePHEDrine 50 MG/ML VIAL IVP PRN (11:37)
[2022-01-04] MEDS ORDERED: NALOXONE 0.4 MG/ML VIAL IVP PRN (11:37)
[2022-01-04] MEDS ORDERED: METOCLOPRAMIDE 10 MG/2 ML VIAL IVP PRN (11:37)
[2022-01-04] MEDS ORDERED: ATROPINE ABBOJECT 1 MG/10 ML SYRINGE IVP PRN (11:37)
[2022-01-04] MEDS ORDERED: HYDROmorphone 0.5 MG/0.5 ML SYRINGE IVP PRN (11:37)
[2022-01-04] MEDS ORDERED: MORPHINE 2 MG/ML CARPUJECT IVP PRN (11:37)
[2022-01-04] MEDS ORDERED: ONDANSETRON 4 MG/2 ML VIAL IVP PRN (11:37)
[2022-01-04] MEDS ORDERED: fentaNYL 100 MCG/2 ML VIAL IVP PRN (11:37)
[2022-01-04] MEDS ORDERED: LACTATED RINGERS 1,000 ML IV SCH (12:00)
[2022-01-04] MEDS ORDERED: BUPIVACAINE 0.25% PF 30 ML VIAL SUBQ ONE ×2 (12:13)
[2022-01-04] MEDS ORDERED: LIDOCAINE 1% 50 ML MDV SUBQ ONE ×2 (12:13)
[2022-01-04] MEDS ORDERED: GLYCOPYRROLATE 1 MG/5 ML VIAL ONE (12:33)
[2022-01-04] MEDS ORDERED: HYDROcod/ACETAM 5/325 MG TABLET PO PRN (13:04)
[2022-01-04] MEDS ORDERED: LACTATED RINGERS 100 ML IV ONE (13:06)
--- NOTE | 2022-01-04 13:10 | OPERATIVE REPORT ---
Operative Report - General Procedure Date: 01/04/22 Planned Procedure: open right inguinal hernia repair with mesh Pre-Op Diagnosis: right inguinal hernia Procedure Performed: open right inguinal hernia repair with mesh Post Op Diagnosis: indirect inguinal hernia - Procedure Note Primary Surgeon: tia martinez Anesthesia Technique: Local, MAC Pathology: none. sac removed. not sent Estimated Blood Loss (mL): 2 Drain/Tube Type: Other (none) Indications: painful hernia bulge Findings: as above Complications: none - Other Other Information/Narrative: Patient was properly identified brought to the operating room and placed in supine position. Sequential compression devices were placed. Monitoredl anesthesia care and sedation was given. He was prepped and draped in a sterile fashion and given preoperative antibiotics. Local anesthetic was given throughout the procedure. A 5 cm incision was made in the direction of Leilani's lines just cephalad of the pubic tubercle. Dissection proceeded with cutting current cautery. The superficial epigastric vein was identified clamped divided and tied with 3-0 Vicryl. Dissection proceeded down to the aponeurosis. The aponeurosis was opened in the direction of its fibers and extended to the external ring. Cord structures were mobilized and brought up. The nerves were carefully protected and preserved. Cord structures were mobilized and brought up. An indirect inguinal hernia was present. The hernia sac was mobilized off the cord structures and suture ligated with 2 O silk and further reduced. Preperitoneal fat was removed. The base was tied with 2 O vicryl. Polypropylene mesh was cut to size and with tails. The mesh was secured with multiple interrupted 0 Ethibond sutures. She was placed along the pubic tubercle, Pop's ligament area and along the shelving border of Poupart's ligament. Sutures were placed medially along the abdominal wall musculature and internal oblique. The medial tail of the mesh was secured to the shelving border of Poupart's ligament with 3 interrupted 0 ethibond sutures recreating the internal ring of appropriate size. An additional suture was placed in the crotch of the mesh recreating an internal ring of appropriate size. Aponeurosis was closed with a running 2-0 Vicryl suture. The opposite was closed with interrupted 3-0 Vicryl suture. Buried interrupted subdermal 3-0 Vicryl sutures were then placed. And was closed with a running 4-0 Monocryl subcuticular suture. Dressing was applied. Patient transferred himself and was brought to recovery in good condition.
--- NOTE | 2022-01-04 13:14 | ANESTHESIA POST OP EVALUATION ---
Anesthesia Post Eval - Post Anesthesia Eval Vitals: Last Vital Signs Temp 36.2 C L 01/04/22 13:04 Pulse 65 01/04/22 13:04 Resp 14 01/04/22 13:04 BP 138/93 H 01/04/22 13:04 Pulse Ox 99 01/04/22 13:04 CV Function Including HR & BP: Stable Pain Control: Satisfactory Nausea & Vomiting: Negative Mental Status: Baseline Respiratory Status: Airway Patent Hydration Status: Satisfactory Anesthesia Complications: None
[2022-01-04 14:33] VITALS: BP 126/91
== END 2022-01-04 10:42 | disposition home or self-care (01) ==
LOC: SDS 10:41
PROVIDERS: ATTEND Surgery
DX: K40.90 Unilateral inguinal hernia, without obstruction or gangrene, not specified as recurrent (principal); I48.91 Unspecified atrial fibrillation; Z95.0 Presence of cardiac pacemaker
CPT/HCPCS: 49505; C1781; J0690; J7120

== ENCOUNTER 2022-01-12 07:15 | Outpatient (CLI) | payer MEDICARE | END 2022-01-12 23:59 | disposition home or self-care (01) | LOC: LAB.S 07:15 | PROVIDERS: ATTEND Internal Medicine Interventional Cardiology | DX: Z51.81 Encounter for therapeutic drug level monitoring (principal); I26.99 Other pulmonary embolism without acute cor pulmonale | CPT/HCPCS: 36416; 85610 ==

== ENCOUNTER 2022-02-07 07:31 | Outpatient (CLI) | payer MEDICARE | END 2022-02-07 07:32 | disposition home or self-care (01) | LOC: LAB.S 07:31 | PROVIDERS: ATTEND Internal Medicine Interventional Cardiology | DX: I26.99 Other pulmonary embolism without acute cor pulmonale (principal); Z51.81 Encounter for therapeutic drug level monitoring | CPT/HCPCS: 36416; 85610 ==

== ENCOUNTER 2022-03-22 07:05 | Outpatient (CLI) | payer MEDICARE | END 2022-03-22 07:06 | disposition home or self-care (01) | LOC: LAB.S 07:05 | PROVIDERS: ATTEND Internal Medicine Interventional Cardiology | DX: I26.99 Other pulmonary embolism without acute cor pulmonale (principal); Z51.81 Encounter for therapeutic drug level monitoring | CPT/HCPCS: 36416; 85610 ==

== ENCOUNTER 2022-04-13 07:02 | Outpatient (CLI) | payer MEDICARE | END 2022-04-13 07:03 | disposition home or self-care (01) | LOC: LAB.S 07:02 | PROVIDERS: ATTEND Internal Medicine Interventional Cardiology | DX: I26.99 Other pulmonary embolism without acute cor pulmonale (principal); Z51.81 Encounter for therapeutic drug level monitoring | CPT/HCPCS: 36416; 85610 ==

== ENCOUNTER 2022-06-28 07:12 | Outpatient (CLI) | payer MEDICARE | END 2022-06-28 07:13 | disposition home or self-care (01) | LOC: LAB.S 07:12 | PROVIDERS: ATTEND Internal Medicine Interventional Cardiology | DX: I26.99 Other pulmonary embolism without acute cor pulmonale (principal); Z51.81 Encounter for therapeutic drug level monitoring | CPT/HCPCS: 36416; 85610 ==

== ENCOUNTER 2022-08-24 08:41 | Outpatient (CLI) | payer MEDICARE | END 2022-08-24 08:42 | disposition home or self-care (01) | LOC: LAB.S 08:41 | PROVIDERS: ATTEND Internal Medicine Interventional Cardiology | DX: I26.99 Other pulmonary embolism without acute cor pulmonale (principal); Z51.81 Encounter for therapeutic drug level monitoring | CPT/HCPCS: 36416; 85610 ==

== ENCOUNTER 2022-10-04 08:21 | Outpatient (CLI) | payer MEDICARE | END 2022-10-04 08:22 | disposition home or self-care (01) | LOC: LAB.S 08:21 | PROVIDERS: ATTEND Internal Medicine Interventional Cardiology | DX: I26.99 Other pulmonary embolism without acute cor pulmonale (principal); Z51.81 Encounter for therapeutic drug level monitoring | CPT/HCPCS: 36416; 85610 ==

== ENCOUNTER 2022-10-26 08:03 | Outpatient (CLI) | payer MEDICARE | END 2022-10-26 08:04 | disposition home or self-care (01) | LOC: LAB.S 08:03 | PROVIDERS: ATTEND Internal Medicine Interventional Cardiology | DX: I26.99 Other pulmonary embolism without acute cor pulmonale (principal); Z51.81 Encounter for therapeutic drug level monitoring | CPT/HCPCS: 85610 ==

== ENCOUNTER 2022-12-06 10:59 | Outpatient (CLI) | payer MEDICARE | END 2022-12-06 11:00 | disposition home or self-care (01) | LOC: LAB.S 10:59 | PROVIDERS: ATTEND Internal Medicine Interventional Cardiology | DX: I26.99 Other pulmonary embolism without acute cor pulmonale (principal); Z51.81 Encounter for therapeutic drug level monitoring | CPT/HCPCS: 36416; 85610 ==

== ENCOUNTER 2022-12-10 08:11 | Outpatient (CLI) | payer MEDICARE ==
[2022-12-10 15:14] LABS: CALCIUM 8.5 mg/dL (8.5-10.3); CREATININE 0.7 mg/dL (0.6-1.2)
== END 2022-12-10 08:12 | disposition home or self-care (01) ==
LOC: LAB.S 08:11
PROVIDERS: ATTEND Internal Medicine Interventional Cardiology
DX: Z51.81 Encounter for therapeutic drug level monitoring (principal); Z79.899 Other long term (current) drug therapy; I48.91 Unspecified atrial fibrillation
CPT/HCPCS: 36415; 80048

== ENCOUNTER 2023-01-16 08:46 | Outpatient (CLI) | payer MEDICARE | END 2023-01-16 08:47 | disposition home or self-care (01) | LOC: LAB.S 08:46 | PROVIDERS: ATTEND Internal Medicine Interventional Cardiology | DX: I26.99 Other pulmonary embolism without acute cor pulmonale (principal); Z51.81 Encounter for therapeutic drug level monitoring | CPT/HCPCS: 36416; 85610 ==

== ENCOUNTER 2023-02-04 08:39 | Outpatient (CLI) | payer MEDICARE ==
[2023-02-04 14:41] LABS: BASOPHILS % (AUTO) 0.6 %; EOSINOPHILS # (AUTO) 0.1 10^3/uL (0.0-0.7); EOSINOPHILS % (AUTO) 1.9 %; HCT - HEMATOCRIT 42.1 % (42.0-52.0); HGB - HEMOGLOBIN 13.6 g/dL (14.0-18.0); LYMPHOCYTES % (AUTO) 36.4 %; MEAN CORPUSCULAR HEMOGLOBIN 30.6 pg (27.0-31.0); MEAN CORPUSCULAR HGB CONC 32.3 g/dL (32.0-36.0); MEAN CORPUSCULAR VOLUME 94.6 fL (80.0-94.0); MEAN PLATELET VOLUME 10.8 fL (7.4-11.4); MONOCYTES # (AUTO) 0.5 10^3/uL (0.0-1.0); MONOCYTES % (AUTO) 8.9 %; NEUTROPHILS # (AUTO) 2.8 10^3/uL (1.5-6.6); PLT - PLATELET COUNT 120 10^3/uL (130-450); RED BLOOD COUNT 4.45 10^6/uL (4.70-6.10); RED CELL DISTRIBUTION WIDTH 12.4 % (12.0-15.0); WHITE BLOOD COUNT 5.4 x10^3/uL (4.8-10.8)
[2023-02-04 15:16] LABS: ALBUMIN 4.2 g/dL (3.2-5.5); ALBUMIN/GLOBULIN RATIO 1.7 (1.0-2.2); ALKALINE PHOSPHATASE 57 IU/L (42-121); ALT ALANINE AMINOTRANSFERASE 18 IU/L (10-60); AST ASPARTATE AMINOTRANSFERASE 21 IU/L (10-42); BUN - BLOOD UREA NITROGEN 30 mg/dL (6-20); CALCIUM 8.8 mg/dL (8.5-10.3); CARBON DIOXIDE - CO2 27 mmol/L (21-32); CHLORIDE 106 mmol/L (101-111); CHOL/HDL RATIO 2.9 (<5.0); CHOLESTEROL 161 mg/dL; CREATININE 0.8 mg/dL (0.6-1.2); GFR - MDRD 93 (>89); GLUCOSE 84 mg/dL (70-100); HDL CHOLESTEROL 56 mg/dL; LDL CHOLESTEROL,CALCULATED 89 mg/dL; LDL/HDL RATIO 1.6 (<3.6); POTASSIUM 4.3 mmol/L (3.5-5.0); SODIUM 137 mmol/L (135-145); TOTAL PROTEIN 6.7 g/dL (6.7-8.2); TRIGLYCERIDES 79 mg/dL; VLDL CHOLESTEROL 16 mg/dL
[2023-02-04 15:18] LABS: THYROID STIMULATING HORMONE 2.27 uIU/mL (0.34-5.60)
== END 2023-02-04 08:40 | disposition home or self-care (01) ==
LOC: LAB.S 08:39
PROVIDERS: ATTEND Registered Nurse
DX: I48.91 Unspecified atrial fibrillation (principal); Z79.899 Other long term (current) drug therapy; Z13.220 Encounter for screening for lipoid disorders
CPT/HCPCS: 36415; 80053; 80061; 83721; 84443; 85025

== ENCOUNTER 2023-03-01 08:18 | Outpatient (CLI) | payer MEDICARE | END 2023-03-01 08:19 | disposition home or self-care (01) | LOC: LAB.S 08:18 | PROVIDERS: ATTEND Internal Medicine Interventional Cardiology | DX: I26.99 Other pulmonary embolism without acute cor pulmonale (principal); Z51.81 Encounter for therapeutic drug level monitoring | CPT/HCPCS: 36416; 85610 ==

== ENCOUNTER 2023-05-14 10:16 | Outpatient (CLI) | payer MEDICARE ==
[2023-05-14 15:31] LABS: CALCIUM 9.2 mg/dL (8.5-10.3); CREATININE 0.7 mg/dL (0.6-1.3); POTASSIUM 4.3 mmol/L (3.5-4.5)
== END 2023-05-14 10:17 | disposition home or self-care (01) ==
LOC: LAB.S 10:16
PROVIDERS: ATTEND Internal Medicine Interventional Cardiology
DX: I26.99 Other pulmonary embolism without acute cor pulmonale (principal); Z51.81 Encounter for therapeutic drug level monitoring; Z79.899 Other long term (current) drug therapy; I48.91 Unspecified atrial fibrillation
CPT/HCPCS: 36415; 80048; 85610

== ENCOUNTER 2023-07-25 08:27 | Outpatient (CLI) | payer MEDICARE | END 2023-07-25 08:28 | disposition home or self-care (01) | LOC: LAB.S 08:27 | PROVIDERS: ATTEND Internal Medicine Interventional Cardiology | DX: I26.99 Other pulmonary embolism without acute cor pulmonale (principal); Z51.81 Encounter for therapeutic drug level monitoring | CPT/HCPCS: 36416; 85610 ==

== ENCOUNTER 2023-09-24 08:00 | Outpatient (CLI) | payer MEDICARE ==
--- NOTE | 2023-09-24 17:00 | XRAY Report ---
PROCEDURE: Finger(s) LT INDICATIONS: CRUSHING INJURY OF LEFT INDEX FINGER TECHNIQUE: AP hand, 2 views of the second finger(s) acquired. COMPARISON: None. FINDINGS: Bones: Query nondisplaced sagittally oriented fracture at the second proximal phalanx tuft. No susp icious bony lesions. Soft tissues: Faint punctate calcification just superior and anterior to the second proximal phalanx tuft seen on AP and oblique view may represent foreign body versus tiny fracture fragment from injur y. IMPRESSION: Query nondisplaced sagittally oriented fracture at the second proximal phalanx tuft. Punctate calcifi cation just superior and anterior to the graft may represent foreign body versus small fracture fragm ent. Reviewed by: Mitzy Horne MD on 09/24/2023 4:59 PM PST Approved by: Mitzy Horne MD on 09/24/2023 4:59 PM PST Station ID: [id number]
== END 2023-09-24 23:59 | disposition home or self-care (01) ==
LOC: DI.S 08:00
PROVIDERS: ATTEND Registered Nurse
DX: S67.191A Crushing injury of left index finger, initial encounter (principal); S61.211A Laceration without foreign body of left index finger without damage to nail, initial encounter

== ENCOUNTER 2023-10-03 08:14 | Outpatient (CLI) | payer MEDICARE | END 2023-10-03 08:15 | disposition home or self-care (01) | LOC: LAB.S 08:14 | PROVIDERS: ATTEND Internal Medicine Interventional Cardiology | DX: I26.99 Other pulmonary embolism without acute cor pulmonale (principal); Z51.81 Encounter for therapeutic drug level monitoring | CPT/HCPCS: 36416; 85610 ==

== ENCOUNTER 2023-12-27 07:50 | Outpatient (CLI) | payer MEDICARE | END 2023-12-27 07:51 | disposition home or self-care (01) | LOC: LAB.S 07:50 | PROVIDERS: ATTEND Internal Medicine Interventional Cardiology | DX: I26.99 Other pulmonary embolism without acute cor pulmonale (principal); Z51.81 Encounter for therapeutic drug level monitoring | CPT/HCPCS: 36416; 85610 ==

== ENCOUNTER 2024-01-23 07:36 | Outpatient (CLI) | payer MEDICARE | END 2024-01-23 07:37 | disposition home or self-care (01) | LOC: LAB.S 07:36 | PROVIDERS: ATTEND Internal Medicine Interventional Cardiology | DX: I26.99 Other pulmonary embolism without acute cor pulmonale (principal); Z51.81 Encounter for therapeutic drug level monitoring | CPT/HCPCS: 36416; 85610 ==

== ENCOUNTER 2024-03-06 08:04 | Outpatient (CLI) | payer MEDICARE ==
[2024-03-06 16:00] LABS: CALCIUM 9.1 mg/dL (8.5-10.3); CREATININE 0.8 mg/dL (0.6-1.3); POTASSIUM 4.2 mmol/L (3.5-4.5)
== END 2024-03-06 08:05 | disposition home or self-care (01) ==
LOC: LAB.S 08:04
PROVIDERS: ATTEND Internal Medicine Interventional Cardiology
DX: I26.99 Other pulmonary embolism without acute cor pulmonale (principal); Z51.81 Encounter for therapeutic drug level monitoring; I48.91 Unspecified atrial fibrillation; Z79.899 Other long term (current) drug therapy
CPT/HCPCS: 36415; 80048; 85610

== ENCOUNTER 2024-03-11 10:29 | Outpatient (CLI) | payer MEDICARE ==
--- NOTE | 2024-03-12 10:33 | Mammography Report ---
MALE BILATERAL DIGITAL DIAGNOSTIC MAMMOGRAM 3D/2D: 03/11/2024 CLINICAL: Diffuse left breast pain. Comparison is made to exam dated: 08/03/2014 mammogram - [facility]. There is gynecomastia in both breasts. Since the prior exam, this has increased in prominence on the left, which correlates with reported pain. This has mildly decreased on the right. No significant masses, calcifications, or other findings are seen in either breast. IMPRESSION: BENIGN There is no mammographic evidence of malignancy. Increased left breast gynecomastia is present and m ay be symptomatic. The patient should follow up with his primary care physician to discuss possible c ontributing factors including medication changes, and hormonal or lifestyle factors. Findings and rec ommendations were conveyed to the patient at time of exam. This exam was interpreted at Station ID: [id number]. NOTE: For mammograms, a report in lay terms will be sent to the patient. Approximately 15% of breast malignancies will not be visualized mammographically. In the management of a palpable breast mass, a negative mammogram must not discourage biopsy of a clinically suspicious lesion. Electronically Signed By: Irina wu/:03/11/2024 11:42:19 letter sent: No_Letter ACR BI-RADS Category 2: Benign Finding(s) 3342F PARENCHYMAL PATTERN: (F) - The breast(s) demonstrate(s) diffuse fatty replacement. BI-RADS CATEGORY: (2) - 2 Unspecified - other recall n/a LATERALITY: (B)
== END 2024-03-11 10:30 | disposition home or self-care (01) ==
LOC: DI 10:29
PROVIDERS: ATTEND Registered Nurse
DX: N62 Hypertrophy of breast (principal)

== ENCOUNTER 2024-04-20 08:26 | Outpatient (CLI) | payer MEDICARE ==
[2024-04-20 15:32] LABS: INR 3.5 (0.8-1.2); PT - PROTHROMBIN TIME 35.6 secs (9.9-12.6)
== END 2024-04-20 08:27 | disposition home or self-care (01) ==
LOC: LAB.S 08:26
PROVIDERS: ATTEND Internal Medicine Interventional Cardiology
DX: I26.99 Other pulmonary embolism without acute cor pulmonale (principal); Z51.81 Encounter for therapeutic drug level monitoring
CPT/HCPCS: 36415; 36416; 85610

== ENCOUNTER 2024-05-18 08:53 | Outpatient (CLI) | payer MEDICARE | END 2024-05-18 08:54 | disposition home or self-care (01) | LOC: LAB.S 08:53 | PROVIDERS: ATTEND Internal Medicine Interventional Cardiology | DX: I26.99 Other pulmonary embolism without acute cor pulmonale (principal); Z51.81 Encounter for therapeutic drug level monitoring | CPT/HCPCS: 36416; 85610 ==